=== PATIENT | female | born 1980 | race Caucasian/White ===

== ENCOUNTER 2017-01-16 17:05 | Inpatient (IN) | payer BC ==
[2017-01-16] MEDS: ELECTROLYTE-148 SOLN 1,000 ML IV SCH (18:00)
[2017-01-16 18:06] VITALS: BMI 33.6
[2017-01-16 18:39] LABS: BASOPHIL 0.3 % (0-2.0); EOSINOPHIL 0.6 % (0-4.5); MCH 32.3 pg (25.7-33.7); MCHC 35.1 g/dl (32.0-36.0); MEAN PLT VOLUME 10.4 fl (7.5-11.1); NEUTROPHILS 66.9 % (42.8-82.8); PLATELET COUNT 202 K/MM3 (134-434); RDW 13.8 % (11.6-15.6)
--- NOTE | 2017-01-16 18:44 | HP ---
Past Medical History - Primary Care Physician PCP:: Lico Johnson - Admission Chief Complaint: 36yo P1 with at EGA 39w0d admitted with PROM at 4: 30pm History of Present Illness: coomplicated by: ASIF GDM A1 History Source: Patient, Medical Record Limitations to Obtaining History: No Limitations - Past Medical History VASCULAR NEUROLOGIST: No: Alzheimer's, CVA, Dementia, Migraine, Multiple Sclerosis, Peripheral Neuropathy, Parkinson's, Seizure, Syncope, TIA, Vertigo, Other Cardiovascular: No: AFIB, Aneurysm, Aortic Insufficiency, Aortic Stenosis, CAD, CHF, Deep Vein Thrombosis, HTN, Hyperlipdemia, ID, Mitral Insufficiency, Mitral Stenosis, Murmur, Pulmonary Hypertension, Other Pulmonary: No: Asthma, Bronchitis, Cancer, COPD, O2 Dependent, Pneumonia, Previously Intubated, Pulmonary Embolus, Pulmonary Fibrosis, Sleep Apnea, Other Gastrointestinal: No: Ascites, Cancer, Constipation, Crohn's Disease, Diverticulitis, Diverticulosis, Esophageal Varices, Gastritis, GERD, GI Bleed, Hemorrhoids, Hiatal Hernia, Inflamatory Bowel Disease, Irritable Bowel Disease, Pancreatitis, Peptic Ulcer Disease, Ulcerative Colitis, Other Hepatobiliary: No: Cirrhosis, Cholelithiasis, Cholecystitis, Choledocholithiasis , Hepatitis A, Hepatitis B, Hepatitis C, Other Reproductive: No: Ectopic , Endometriosis, Fibroids, PID, Polycystic Ovary Syndrome, Postmenopausal, Other ...: 2 ...Para: 1 ...Term: 1 ...LMP: 04/18/16 ... Weeks Gestation by Dates: 39 ...EDC by Dates: 01/23/17 ...EDC by Sono: 01/23/17 Heme/Onc: Yes: Anemia Infectious Disease: No: AIDS, C-Diff, Herpes Zoster, HIV, MRSA, STD's, Tuberculosis, VREF, Other Psych: No: Addictions, Anxiety, Bipolar, Depression, Panic, Psychosis, Schizophrenia, Other Musculoskeletal: No: Bursitis, Chronic low back pain, Hemiparesis, Hemiplegia, Osteoarthritis, Paraplegia, Other ENT: No: Allergic Rhinitis, Sinusitis, Other Endocrine: No: Zackary's Disease, Jimena's Disease, Diabetes Insipidus, Diabetes Mellitus, Hyperparathyroidism, Hyperthyroidism, Hypothyroidism, Osteopenia, SIADH, Other Dermatology: No: Basal Cell, Cellulitis, Eczema, Melanoma, Psoriasis, Squamous Cell, Other - Past Surgical History Past Surgical History: Yes: None Hx Myomectomy: No Hx Transabdominal Cerclage: No - Smoking History Smoking history: Never smoked Have you smoked in the past 12 months: No - Alcohol/Substance Use Hx Alcohol Use: No History of Substance Use: reports: None - Social History Usual Living Arrangement: Yes: With Spouse, With Child ADL: Independent 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 History of Recent Travel: No Home Medications - Allergies Allergies/Adverse Reactions: Allergies Allergy/AdvReac Type Severity Reaction Status Date / Time No Known Allergies Allergy Verified 02/02/14 07:55 - Home Medications Home Medications: Ambulatory Orders -1 Capsule 1 tab PO DAILY 01/08/14 Family Disease History - Family Disease History Family History: Denies Review of Systems - Review of Systems Constitutional: reports: No Symptoms Eyes: reports: No Symptoms HENT: reports: No Symptoms Neck: reports: No Symptoms Cardiovascular: reports: No Symptoms Respiratory: reports: No Symptoms Gastrointestinal: reports: No Symptoms Genitourinary: reports: No Symptoms Breasts: reports: No Symptoms Reported Musculoskeletal: reports: No Symptoms Integumentary: reports: No Symptoms Neurological: reports: No Symptoms Endocrine: reports: No Symptoms Hematology/Lymphatic: reports: No Symptoms Psychiatric: reports: No Symptoms Pain Intensity: 1 Physical Exam - Maternity Vital Signs: Vital Signs Temperature 98.1 F 01/16/17 17:57 Pulse Rate 95 H 01/16/17 17:57 Respiratory Rate 20 01/16/17 17:57 Blood Pressure 110/70 01/16/17 17:57 O2 Sat by Pulse Oximetry (%) Constitutional: Yes: Well Nourished, No Distress, Calm Eyes: Yes: WNL, Conjunctiva Clear, EOM Intact HENT: Yes: WNL, Atraumatic, Normocephalic Neck: Yes: WNL, Supple, Trachea Midline Cardiovascular: Yes: WNL, Regular Rate and Rhythm Lungs: Clear to auscultation, Normal air movement Breast(s): Yes: WNL - Abdominal Exam/OB Fundal Height: 39 Number of Fetuses: Single Presentation: Vertex (US confirmed at bedside) Contractions: Yes Regularity: Irregular Intensity: Unaware Monitor Mode: External Heart Rate (range): 130 Heart Rate Location: Midline Category: I Accelerations: Uniform Decelerations: None - Vaginal Exam/OB Vaginal Bleediing: No Speculum Exam: No (grossly rupturred) Dilatation (cm): 3 Effacement (%): 50 Amniotic Membrane Status: Leaking Nitrazine Test: Positive Amniotic Fluid: Yes: Clear Presentation: Vertex/Position Station: -4 (Adequate gynecoid pelvimetry) - Physical Exam Musculoskeletal: Yes: WNL Extremities: Yes: WNL Edema: No Edema: LLE: Trace, RLE: Trace Integumentary: Yes: WNL Deep Tendon Reflex Grade: Normal +2 ...Motor Strength: WNL Psychiatric: Yes: WNL, Alert, Oriented Hemorrhage Risk Assessment - Risk Factors Medium Risk Factors: Yes: None High Risk Factors: Yes: None Risk Score: 1 Risk Level: Medium Risk Imaging - Results Ultrasound: Report Reviewed Assessment/Plan 36yo P1 with at EGA 39w0d admitted with PROM at 4:30pm. The fetus with Category i tracing and requires no intervention. Plan to induce contractions with pitocin. We had land discussion re: risks, benefits, and alternatives of labor induction. I explained the options of expectant management awaiting spontaneous labor, induction of labor, and elective section. The risks of uterine tachysystole, distress, uterine rupture, need for emergency C/S, hemorrhage, infection, scarring, etc. were discussed. We also discussed the risks of meconium aspiration, shoulder dystocia , and anesthesia options.
[2017-01-16 18:56] LABS: INR 0.96 (0.82-1.09); PROTHROMBIN TIME (PATIENT) 10.6 SEC (9.98-11.88)
[2017-01-16 18:58] LABS: ACTIVATED PTT 25.1 SECONDS (26.9-34.4)
[2017-01-16 19:04] LABS: ANION GAP 9 (8-16); CALCIUM 9.3 mg/dL (8.5-10.1); CO2 23 mmol/L (21-32); CREATININE 0.9 mg/dL (0.55-1.02); GLUCOSE,RANDOM 76 mg/dL (74-106)
[2017-01-16] MEDS: OXYTOCIN 15 UNITS/ LR 250 ML 250 ML IVPB SCH (20:00)
[2017-01-16] MEDS ORDERED: CITRIC ACID/SODIUM CITRATE 30 ML UNIT-DOSE CUP PO ONE (20:30)
[2017-01-17] MEDS ORDERED: FENTANYL/BUPIVACAINE/NS/PF - PCEA - 50 ML DISP.SYRIN EP SCH (00:45)
[2017-01-17] MEDS: ELECTROLYTE-148 SOLN 1,000 ML IV SCH ×3 (00:45→23:44)
--- NOTE | 2017-01-17 06:39 | PN ---
Delivery - Delivery Vaginal Delivery: Spontaneous Type of Anesthesia: Epidural Episiotomy/Laceration: Midline, 1st degree (repaired with 2-0 Chromic) EBL (cc): 300 Delivery, Single - Stages of Labor Date 1st Stage Initiatied: 01/16/17 Date 2nd Stage Initiated: 01/17/17 Date of Delivery: 01/17/17 Time of Delivery: 06:15 Date Placenta Delivered: 01/17/17 Time Placenta Delivered: 06:20 Placenta: Yes: Spontaneous - Condition of Infant Radiology Administrator/Transmission And Protection Engineer Present: Yes Infant Gender: Female Position: OA - 1 Minute Total Score: 9 5 Minutes Total Score: 9 - Feeding Plan Initial Plan: Exclusive throughout hospitalization Benefits of Exclusively reinforced: Yes Remarks - Remarks Remarks: uncomplicated head and shoulder delivery
[2017-01-17] MEDS ORDERED: BENZOCAINE 28 GM HEMORRHOIDAL OINTMENT TP PRN (06:40)
[2017-01-17] MEDS ORDERED: BISACODYL 10 MG SUPP.RECT RC PRN (06:40)
[2017-01-17] MEDS ORDERED: WITCH HAZEL 50% (TUCKS) 40 PAD/JAR PAD TP PRN (06:40)
[2017-01-17] MEDS ORDERED: BENZOCAINE 20% 57 GM BOTTLE TP PRN (06:40)
[2017-01-17] MEDS ORDERED: METHYLERGONOVINE MALEATE 0.2 MG/1 ML AMP IM PRN (06:40)
[2017-01-17] MEDS ORDERED: D5W-LR W/ 20 UNITS OXYTOCIN 1,000 ML IV SCH (06:45)
[2017-01-17] MEDS: ACETAMINOPHEN 325 MG TABLET (FP) PO PRN ×3 (10:34→22:07)
[2017-01-17] MEDS: IBUPROFEN 600 MG TABLET (FP) PO PRN ×3 (10:35→22:07)
[2017-01-17] MEDS: PRENATAL VITAMINS W/ FOLIC ACID TABLET (FP) PO SCH (10:35)
[2017-01-17] MEDS: FERROUS SO4 325 MG TABLET (FP) PO SCH ×2 (10:35→22:08)
[2017-01-17] MEDS: OXYTOCIN 15 UNITS/ LR 250 ML 250 ML IVPB SCH (23:44)
[2017-01-18] MEDS: ACETAMINOPHEN 325 MG TABLET (FP) PO PRN ×3 (04:20→19:21)
[2017-01-18] MEDS: IBUPROFEN 600 MG TABLET (FP) PO PRN ×3 (04:20→19:21)
[2017-01-18 07:48] LABS: BASOPHIL 0.4 % (0-2.0); MCH 31.5 pg (25.7-33.7); MCHC 33.9 g/dl (32.0-36.0); MEAN PLT VOLUME 10.1 fl (7.5-11.1); NEUTROPHILS 70.6 % (42.8-82.8); PLATELET COUNT 164 K/MM3 (134-434); RDW 13.8 % (11.6-15.6)
--- NOTE | 2017-01-18 08:30 | PN ---
Progress Note (short form) - Note Progress Note: ppd 1 doing well, no c/o voids ok, no excess vaginal bleeding uterus firm, non tender, lochia mild no calf tenderness plan ambulate, for d/c home in am
[2017-01-18] MEDS: PRENATAL VITAMINS W/ FOLIC ACID TABLET (FP) PO SCH (09:12)
[2017-01-18] MEDS: FERROUS SO4 325 MG TABLET (FP) PO SCH ×2 (09:12→21:58)
[2017-01-18] MEDS ORDERED: SENNOSIDES/DOCUSATE COMBO (SENNA PLUS) TABLET (UD) PO PRN ×2 (22:00)
[2017-01-19] MEDS: IBUPROFEN 600 MG TABLET (FP) PO PRN ×3 (01:43→10:31)
[2017-01-19] MEDS: ACETAMINOPHEN 325 MG TABLET (FP) PO PRN ×3 (01:44→10:30)
[2017-01-19] MEDS: PRENATAL VITAMINS W/ FOLIC ACID TABLET (FP) PO SCH (10:31)
[2017-01-19] MEDS: FERROUS SO4 325 MG TABLET (FP) PO SCH (10:32)
--- NOTE | 2017-01-19 11:05 | DS ---
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 Vital Signs: Vital Signs Temperature 97.9 F 01/18/17 22:00 Pulse Rate 78 01/18/17 22:00 Respiratory Rate 18 01/18/17 22:00 Blood Pressure 123/75 01/18/17 22:00 O2 Sat by Pulse Oximetry (%) 100 01/17/17 06:45 Constitutional: Yes: Well Nourished, No Distress, Calm Eyes: Yes: WNL, Conjunctiva Clear, EOM Intact HENT: Yes: WNL, Atraumatic, Normocephalic Neck: Yes: WNL, Supple, Trachea Midline Cardiovascular: Yes: WNL, Regular Rate and Rhythm Respiratory: Yes: WNL, Regular, CTA Bilaterally Gastrointestinal: Yes: WNL ...Rectal Exam: Yes: WNL Renal/: Yes: WNL ....Post : Yes: Uterus firm, Uterus non-tender, Slight lochia rubra Breast(s): Yes: WNL Musculoskeletal: Yes: WNL Extremities: Yes: WNL Edema: No Integumentary: Yes: WNL Neurological: Yes: WNL, Alert, Oriented ...Motor Strength: WNL Psychiatric: Yes: WNL, Alert, Oriented Labs: CBC, BMP 01/18/17 06:00 01/16/17 18:00 Delivery - Delivery Vaginal Delivery: Spontaneous Type of Anesthesia: Epidural Episiotomy/Laceration: Vaginal Extension/lac, 1st degree EBL (cc): 300 Delivery, Single - Stages of Labor Date 1st Stage Initiatied: 01/17/17 Time 1st Stage Initiated: 00:00 Date 2nd Stage Initiated: 01/17/17 Time 2nd Stage Initiated: 05:40 Date of Delivery: 01/17/17 Time of Delivery: 06:15 Time Placenta Delivered: 06:20 Placenta: Yes: Spontaneous - Condition of Infant Cook Specialty/Utility Porter Present: No Infant Gender: Female Weight: 7 lb 2 oz Position: OA Total Hours ROM (Hrs/Mins): 13HRS/50MINS - 1 Minute Total Score: 9 5 Minutes Total Score: 9 - Feeding Plan Initial Plan: Exclusive throughout hospitalization Benefits of Exclusively reinforced: Yes Discharge Summary Reason For Visit: SROM-LABOR Procedures: Principal: Condition: Good - Instructions Referrals: Lico Johnson MD [Staff Physician] - Disposition: HOME - Home Medications Comprehensive Discharge Medication List: Ambulatory Orders -1 Capsule 1 tab PO DAILY 01/08/14 Ibuprofen [Motrin -] 600 mg PO QID #28 tablet 01/17/17
[2017-01-19 13:53] VITALS: BP 100/64; PULSE 72; TEMP 98.7
== END 2017-01-19 13:00 | disposition home or self-care (01) | DRG 775 ==
LOC: JLDR 17:05 → J3W 01-17 08:40
PROVIDERS: ADMIT Obstetrics & Gynecology; ATTEND Obstetrics & Gynecology
PROC: 10E0XZZ Delivery of Products of Conception, External Approach (ICD-10-PCS; principal; 2017-01-17)
PROC: 0HQ9XZZ Repair Perineum Skin, External Approach (ICD-10-PCS; 2017-01-17)
DX: O70.0 First degree perineal laceration during delivery (principal); Z3A.39 39 weeks gestation of pregnancy; Z37.0 Single live birth
CPT/HCPCS: 36415; 59409; 80048; 85025; 85610; 85730; 86593; 86850; 86900; 86901

== ENCOUNTER 2017-01-23 07:53 | Inpatient (IN) | payer BC ==
[2017-01-23 07:59] VITALS: BMI 32.9
--- NOTE | 2017-01-23 08:30 | PDOC ---
History of Present Illness - General Chief Complaint: SIRS, Suspected/Possible Stated Complaint: PAIN Time Seen by Provider: 01/23/17 08:29 History Source: Patient Exam Limitations: No Limitations - History of Present Illness Initial Comments: CHIEF COMPLAINT: 36 y/o female, 6 days post via NVD c/o fever for the past 3 days and overall body pain. HISTORY OF PRESENT ILLNESS: The patient states this morning she developed SOB and her fever was 101.4. She took tylenol around 5:30am. She also admits to abdominal pain. She denies HALEY, neck pain, cough, hemoptysis, CP, n/v/d, redness /firmness to breasts. She has had bowel movements since delivery. Vital signs on arrival are within normal limits. REVIEW OF SYSTEMS: GENERAL/CONSTITUTIONAL: +fever and chills. +body pain. + weakness. No weight change. HEAD, EYES, EARS, NOSE AND THROAT: No change in vision. No ear pain or discharge. No sore throat. CARDIOVASCULAR: +SOB. No chest pain. RESPIRATORY: No cough, wheezing, or hemoptysis. GASTROINTESTINAL: +abdominal pain. No nausea, vomiting, diarrhea. GENITOURINARY: No dysuria, frequency, or change in urination. MUSCULOSKELETAL: No joint or muscle swelling or pain. No neck or back pain. SKIN: No rash or easy bruising. NEUROLOGIC: No headache, vertigo, loss of consciousness, or loss of sensation. PHYSICAL EXAM: GENERAL: The patient is awake, alert, and fully oriented, in obvious discomfort. Patient has 3 blankets on, is pale and lips very dry and cracked. HEAD: Normal with no signs of trauma. ENT: Pupils equal, round and reactive to light, extraocular movements intact, sclera anicteric, conjunctiva clear. Neck supple. Mucous membranes moderately dry. LUNGS: Clear to auscultation bilaterally. Normal excursion. No respiratory distress or use of accessory muscles. CV: RRR, S1/S2, no MRG. Cap refill < 2 sec. ABDOMEN: Firm, distended, very tender to palpation diffusely with guarding. VAGINAL: Digital exam reveals exquisite fundal tenderness. No adnexal tenderness b/l. EXTREMITIES: Normal range of motion, no edema. NEUROLOGICAL: Normal speech, normal gait. CN II-XII grossly intact. PSYCH: Normal mood, normal affect. SKIN: Warm, dry, normal turgor, no rashes or lesions noted. Past History - Past Medical History Allergies/Adverse Reactions: Allergies Allergy/AdvReac Type Severity Reaction Status Date / Time No Known Allergies Allergy Verified 01/23/17 07:59 Home Medications: Ambulatory Orders NK [No Known Home Medication] 01/23/17 Anemia: Yes (WITH ) Asthma: No Cancer: No Cardiac Disorders: No Diabetes: Yes (WITH ) HTN: No Seizures: No Thyroid Disease: No - Psycho/Social/Smoking Cessation Hx Suicidal Ideation: No Smoking History: Never smoked Have you smoked in the past 12 months: No Hx Alcohol Use: No Drug/Substance Use Hx: No Hx Substance Use Treatment: No *Physical Exam - Vital Signs Last Vital Signs Temp Pulse Resp BP Pulse Ox 98.9 F 86 20 136/79 98 01/23/17 07:54 01/23/17 07:54 01/23/17 07:54 01/23/17 07:54 01/23/17 07:54 Heart Score/ECG Review - ECG Intrepretation Comment:: Twelve-lead EKG was performed and reviewed by Dr. Miller. There is normal sinus rhythm with a normal rate. The axis is normal. The intervals are normal. There are no ST or T wave abnormalities. Impression: Normal twelve-lead EKG ED Treatment Course - LABORATORY CBC & Chemistry Diagram: 01/23/17 09:23 01/23/17 09:23 Medical Decision Making - Medical Decision Making A/P: 36 y/o female with fever x 3 days s/p NVD 6 days ago. Pt is also complaining of SOB. Concerned for retained products, PE, sepsis. Plan is as follows: 1. Sepsis protocol 2. Chest CTA 3. Transvaginal Ultrasound 4. IV morphine After morphine, the abdominal pain has localized to her RUQ. Liver enzymes are all mildly elevated. Suspect cholecystitis. Ordered official ultrasound. Chest CTA IMPRESSION: No large central emboli seen. Small pleural effusions, right greater than left. Bibasilar atelectasis/infiltrates. Nonspecific hepatosplenomegaly. Transvaginal Ultrasound IMPRESSION: No evidence of retained products of conception. Gallbladder Ultrasound IMPRESSION: Trace ascites and hepatomegaly. No sonographic evidence of acute cholecystitis. Bedside abdominal ultrasound reveals some free fluid in Corley's pouch and in space between spleen and left kidney. Will send for abd/pelvis CT. CT abd/pelvis IMPRESSION: Mild subhepatic fluid. Hepatosplenomegaly. Significantly enlarged uterus with compression of the upper bladder by the uterus. Spoke extensively with Dr. 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 She states her labor was uneventful and her water was only broken for about 14 hours prior to delivery. Given the patient's fundal tenderness will admit to the OB (she accepts admission) for endometritis, pneumonia and pyelonephritis. The patient was given IV vanc and zosyn in the ER. Dr. Lindsay would like the patient to have gent, clinda and cefoxitime. Will also add pulmonary consult. The patient and her were made aware of the plan for admission. She states her pain is coming back. Ordered another dose of IV morphine. Dr. Mckeon has consulted with the patient and feels she should be admitted to ICU under hospitalist. He would also like ID and general surgery consults. Spoke with Hospitalist, Dr. Alvarenga, who accepts admission. *DC/Admit/Observation/Transfer Diagnosis at time of Disposition: Pyelonephritis complicating , antepartum, Pneumonia affecting , antepartum, Endometritis following delivery UTI (urinary tract infection) Qualifiers: Qualified Code(s): N10 - Acute pyelonephritis - Discharge Dispostion Condition at time of disposition: Fair Admit: Yes
[2017-01-23] MEDS ORDERED: SODIUM CHLORIDE 1,000 ML IV STA (08:38)
[2017-01-23] MEDS ORDERED: morphine CARPU-JECT 4 MG/1 ML DISP.SYRIN IVPUSH ONE ×2 (08:43→13:52)
[2017-01-23] MEDS ORDERED: morphine CARPU-JECT 2 MG/1 ML DISP.SYRIN ONE ×2 (09:08→13:54)
[2017-01-23 09:25] LABS: BASOPHIL 0.4 % (0-2.0); EOSINOPHIL 0.1 % (0-4.5); MCH 31.4 pg (25.7-33.7); MCHC 33.4 g/dl (32.0-36.0); MEAN CELL VOLUME 93.9 fl (80-96); MEAN PLT VOLUME 8.2 fl (7.5-11.1); NEUTROPHILS 81.9 % (42.8-82.8); PLATELET COUNT 243 K/MM3 (134-434); WHITE BLOOD COUNT 7.7 K/mm3 (4.0-10.0)
[2017-01-23 09:39] LABS: INR 1.02 (0.82-1.09); PROTHROMBIN TIME (PATIENT) 11.2 SEC (9.98-11.88)
[2017-01-23 09:42] LABS: ACTIVATED PTT 28.2 SECONDS (26.9-34.4)
[2017-01-23 09:48] LABS: ALBUMIN 2.4 g/dl (3.4-5.0); ANION GAP 8 (8-16); BILIRUBIN,TOTAL 0.3 mg/dL (0.2-1.0); CALCIUM 8.2 mg/dL (8.5-10.1); CO2 24 mmol/L (21-32); CREATININE 0.8 mg/dL (0.55-1.02); GLUCOSE,RANDOM 80 mg/dL (74-106); SGOT/AST 49 U/L (15-37); SGPT/ALT 80 U/L (12-78); TOT PROT 6.1 g/dl (6.4-8.2)
[2017-01-23 09:51] LABS: ALK PHOS 125 U/L (45-117); CPK 43 IU/L (26-192); TROPONIN I 0.04 ng/ml (0.00-0.05)
[2017-01-23 11:01] LABS: URINE APPEARANCE TURBID; URINE BILIRUBIN NEGATIVE (NEGATIVE); URINE BLOOD 3+ (NEGATIVE); URINE COLOR DKYELLOW; URINE GLUCOSE (UA) NEGATIVE (NEGATIVE); URINE KETONE NEGATIVE (NEGATIVE); URINE NITRITE NEGATIVE (NEGATIVE); URINE UROBILINOGEN NEGATIVE mg/dL (0.2-1.0)
[2017-01-23 11:02] LABS: URINE LEUK ESTERASE 3+ (NEGATIVE); URINE PROTEIN 2+ (NEGATIVE)
[2017-01-23 11:03] LABS: URINE MUCUS RARE; URINE RBC 16 /hpf (0-3); URINE WBC 1396 /hpf (3-5)
[2017-01-23] MEDS ORDERED: PIPERACILLIN/TAZOB 3.375 GM/50 ML PRE-DOCKED IVPB ONE (12:23)
[2017-01-23] MEDS ORDERED: VANCOMYCIN 1,000 MG in DEXTROSE 5%-WATER - 250 ML IVPB ONE (12:24)
[2017-01-23] MEDS ORDERED: PIPERACILLIN/TAZOB 3.375 GM 50 ML IVPB ONE (12:31)
[2017-01-23] MEDS ORDERED: VANCOMYCIN 1 GRAM (PRE-DOCKED) 250 ML IVPB ONE (12:31)
--- NOTE | 2017-01-23 14:28 | PDOC ---
*Physical Exam - Vital Signs Last Vital Signs Temp Pulse Resp BP Pulse Ox 98.9 F 86 20 136/79 98 01/23/17 07:54 01/23/17 07:54 01/23/17 07:54 01/23/17 07:54 01/23/17 07:54 - Physical Exam General Appearance: Yes: Nourished. No: Apparent Distress Neck: positive: Trachea midline Respiratory/Chest: positive: Lungs Clear, Normal Breath Sounds Cardiovascular: positive: Regular Rhythm, Regular Rate, S1, S2. negative: Edema Gastrointestinal/Abdominal: positive: Normal Bowel Sounds, Tender, Other (RUQ TTp, diffusely ttp. no) Musculoskeletal: negative: CVA Tenderness Integumentary: positive: Normal Color, Dry, Warm Neurologic: positive: Fully Oriented, Alert, Normal Mood/Affect ED Treatment Course - LABORATORY CBC & Chemistry Diagram: 01/23/17 09:23 01/23/17 09:23 - ADDITIONAL ORDERS Additional order review: Laboratory Results 01/23/17 01/23/17 01/23/17 12:50 09:23 09:23 INR PTT (Actin FS) Sodium Potassium Chloride Carbon Dioxide Anion Gap BUN Creatinine Creat Clearance w eGFR Random Glucose Lactic Acid 1.0 Calcium Total Bilirubin AST ALT Alkaline Phosphatase Creatine Kinase Troponin I Total Protein Albumin Lipase 99 Urine Color Urine Appearance Urine pH Ur Specific [place] Urine Protein Urine Glucose (UA) Urine Ketones Urine Blood Urine Nitrite Urine Bilirubin Urine Urobilinogen Ur Leukocyte Esterase Urine RBC Urine WBC Ur Epithelial Cells Urine Mucus Blood Type O POSITIVE Antibody Screen Negative 01/23/17 01/23/17 01/23/17 09:23 09:23 09:23 INR 1.02 PTT (Actin FS) 28.2 Sodium 142 Potassium 4.4 Chloride 110 H Carbon Dioxide 24 Anion Gap 8 BUN 14 D Creatinine 0.8 Creat Clearance w eGFR > 60 Random Glucose 80 Lactic Acid Calcium 8.2 L Total Bilirubin 0.3 AST 49 H ALT 80 H Alkaline Phosphatase 125 H Creatine Kinase 43 Troponin I 0.04 Total Protein 6.1 L Albumin 2.4 L Lipase Urine Color Dkyellow Urine Appearance Turbid Urine pH 5.0 Ur Specific [place] 1.015 Urine Protein 2+ H Urine Glucose (UA) Negative Urine Ketones Negative Urine Blood 3+ H Urine Nitrite Negative Urine Bilirubin Negative Urine Urobilinogen Negative Ur Leukocyte Esterase 3+ H Urine RBC 16 Urine WBC 1396 Ur Epithelial Cells Moderate Urine Mucus Rare Blood Type Antibody Screen 01/23/17 09:23 RBC 3.85 MCV 93.9 MCHC 33.4 RDW 14.0 MPV 8.2 D Neutrophils % 81.9 Lymphocytes % 13.5 D Monocytes % 4.1 Eosinophils % 0.1 D Basophils % 0.4 - Medications Given in the ED: ED Medications Discontinued Medications Generic Name Dose Route Start Last Admin Trade Name Magui PRN Reason Stop Dose Admin Sodium Chloride 1,000 mls @ 1,000 mls/hr 01/23/17 08:38 01/23/17 09:15 Normal Saline - IV 01/23/17 09:37 1,000 mls/hr ASDIR STA Administration Vancomycin HCl 1,000 mg/ 250 mls @ 250 mls/hr 01/23/17 12:24 01/23/17 12:32 Dextrose IVPB 01/23/17 13:23 250 mls/hr ONCE ONE Administration Protocol Morphine Sulfate 4 mg 01/23/17 08:43 01/23/17 09:15 Morphine Injection - IVPUSH 01/23/17 08:44 4 mg ONCE ONE Administration Morphine Sulfate 4 mg 01/23/17 13:52 01/23/17 14:00 Morphine Injection - IVPUSH 01/23/17 13:53 4 mg ONCE ONE Administration Piperacillin Sod/Tazobactam Sod 3.375 gm 01/23/17 12:23 01/23/17 12:32 Zosyn 3.375gm Ivpb (Pre-Docked) IVPB 01/23/17 12:24 3.375 gm ONCE ONE Administration Protocol Medical Decision Making - Medical Decision Making 01/23/17 14:19 36 yo F s/p vaginal delivery 1 week ago, here today with c/o fever chills abd pain and sob. no chest pain. no urinary complaints. pt is breast feeding . has breast engorgement. no redness. no n/v on exam pt awake l diffusely tendern abd, ruq ttp. differential: pe, sana cholelithiasis endometritis retained products. ut pyelo plan ct us ruq, . pt seen and examined in conjunction with ZACHARY Irizarry agree with plan bedside us ruq indication elevated liver ezymes fever RUQ ultrasound performed scanned in two planes no stones, no wall thickening or wall edema. negative sonographic laughlin's. small free fluid noted in morrisons pouch. cbd normal wall measured <4mm impression: normal gallbladder, free intraperitoneal fluid. focused ED TTE performed indication : sob. finding: heart scanned in two planes parasternal long and short. no pericardial effusion noted. good contractility. no rv enlargement or dilation. lungs scanned bilaterally. bilateral small plueral effusions. left base lungs air bronchograms noted impression: normal cardiac ultrasound, small pleural lung effusions, air bronchograms left base c/w atelectasis or pneumonia. cirilli *DC/Admit/Observation/Transfer Diagnosis at time of Disposition: Pyelonephritis complicating , antepartum, Pneumonia affecting , antepartum, Endometritis following delivery UTI (urinary tract infection) Qualifiers: Urinary tract infection type: acute pyelonephritis Qualified Code(s): N10 - Acute pyelonephritis
[2017-01-23] MEDS ORDERED: GENTAMICIN SO4 *PEDIATRIC* 20 MG/2 ML VIAL IVPB SCH (14:30)
[2017-01-23] MEDS ORDERED: ACETAMINOPHEN 1000 MG/100 ML VIAL (NON FORMULARY) IVPB ONE ×2 (15:13→23:13)
[2017-01-23] MEDS ORDERED: ACETAMINOPHEN INJECTION 100 ML IVPB ONE (15:13)
--- NOTE | 2017-01-23 15:41 | CON.PULM ---
Consult Consult Specialty:: PULMONARY Referred by:: PMD - History of Present Illness Chief Complaint: FEVER/ABN CT CHEST History of Present Illness: 36 FEMALE BORN IN [place] PRESENTS 4 DAYS POST NVD WITH WEAKNESS/FEVER/CHILLS/ DIFFUSE PROGRESSIVE ABD PAIN. DENIES N/V HAD A BM, DENIES SX OF UTI. SPOKE WITH OB THE DELIVERY WAS UNEVENTFUL. PRESENTS TO ER IN TOXIC APPEARING STATE, HAS RECEIVED MS/IV TYLENOL/ IV FLUIDS AND HAS BEEN PANCULTURED. SHE WILL BE ADMITTED TO THE ICU. 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's Cardio/Vascular: No: AFIB Pulmonary: No: Asthma Gastrointestinal: No: Cancer, Crohn's Disease, Gastritis, GERD, GI Bleed, Inflamatory Bowel Disease Hepatobiliary: No: Cirrhosis Renal/: No: Renal Failure Reproductive: Yes: Other (POST 6 DAYS) ...LMP: 04/25/13 ...: No Heme/Onc: Yes: Anemia - Past Surgical History Past Surgical History: Yes: None - Alcohol/Substance Use Hx Alcohol Use: No History of Substance Use: reports: None - Smoking History Smoking history: Never smoked Have you smoked in the past 12 months: No - Social History Usual Living Arrangement: With Spouse ADL: Independent 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 Place of : Other ([employer]) History of Recent Travel: No Home Medications - Allergies Allergies/Adverse Reactions: Allergies Allergy/AdvReac Type Severity Reaction Status Date / Time No Known Allergies Allergy Verified 01/23/17 07:59 - Home Medications Home Medications: Ambulatory Orders NK [No Known Home Medication] 01/23/17 Family Disease History - Family Disease History Family History: Unremarkable Review of Systems - Review of Systems Constitutional: reports: Chills, Diaphoresis, Fever, Lethargy, Loss of Appetite , Night Sweats, Weakness Eyes: denies: Blind Spots HENT: denies: Difficult Swallowing Neck: denies: Decreased ROM Cardiovascular: denies: Chest Pain Respiratory: denies: Cough, SOB Gastrointestinal: reports: Abdominal Pain. denies: Vomiting, Vomiting Blood Genitourinary: denies: Burning, Discharge Breasts: reports: No Symptoms Reported Musculoskeletal: reports: No Symptoms Integumentary: reports: No Symptoms Neurological: reports: No Symptoms Endocrine: reports: No Symptoms Hematology/Lymphatic: reports: No Symptoms Physical Exam Vital Sings: Vital Signs Temperature 100 F H 01/23/17 15:04 Pulse Rate 84 01/23/17 15:04 Respiratory Rate 18 01/23/17 15:04 Blood Pressure 132/78 01/23/17 15:04 O2 Sat by Pulse Oximetry (%) 98 01/23/17 15:04 Constitutional: Yes: Anxious, Ashen, Moderate Distress Eyes: Yes: EOM Intact HENT: Yes: Normocephalic Neck: Yes: Trachea Midline Cardiovascular: Yes: Regular Rate and Rhythm, S1, S2 Respiratory: Yes: CTA Bilaterally, Diminished (AT BASES) Gastrointestinal: Yes: Hypoactive Bowel Sounds, Tenderness (DIFFUSE) Renal/: Yes: WNL Musculoskeletal: Yes: WNL Extremities: Yes: WNL Edema: No Neurological: Yes: Alert Psychiatric: Yes: Alert Labs: ALL REVIEWED Imaging - Results Chest X-ray: Report Reviewed, Image Reviewed X-ray: Report Reviewed Cat Scan: Report Reviewed, Image Reviewed Ultrasound: Report Reviewed Problem List - Problems (1) Endometritis following delivery Code(s): O86.12 - ENDOMETRITIS FOLLOWING DELIVERY (2) Pyelonephritis complicating , antepartum Code(s): O23.00 - INFECTIONS OF KIDNEY IN , UNSPECIFIED TRIMESTER (3) UTI (urinary tract infection) Code(s): N39.0 - URINARY TRACT INFECTION, SITE NOT SPECIFIED Qualifiers: Urinary tract infection type: acute pyelonephritis Qualified Code(s): N10 - Acute pyelonephritis Assessment/Plan DIFFUSE ABDOMINAL PAIN/FEVER ETIOLOGY TO BE DETERMINED DOUBT SYMPTOMS ARE PULMONARY IN ORIGIN NOT UNUSUAL TO HAVE BIBASILAR ATELECTASIS POST ANTIBIOTICS GIVEN WOULD COVER PULMONARY PATHOGENS HAVE SPOKEN TO RADIOLOGYREGARDING STUDIES PERFORMED THUS FAR WILL ADMIT TO ICU UNDER HOSPITALIST SERVICE OB/GENERAL SURG CONSULTS CALLED WILL ALSO SUGGEST ID EVAL/AWAIT LACTIC ACID/CRP R RILEY MCLEOD
[2017-01-23] MEDS ORDERED: DEXTROSE 5%-0.45% SALINE 1,000 ML IV SCH (16:00)
[2017-01-23] MEDS ORDERED: morphine CARPU-JECT 2 MG/1 ML DISP.SYRIN IVPUSH PRN (17:01)
--- NOTE | 2017-01-23 17:19 | HP ---
CHIEF COMPLAINT: fever, chills, SOB, abdominal pain x 3 days PCP: HISTORY OF PRESENT ILLNESS: 36 y/o F with PMH gestational diabetes, iron deficiency anemia, who presented to ED with fever, chills, SOB, abdominal pain x 3 days. Pt had a normal vaginal delivery on (01/17), with episiotomy. As per pt, on Saturday (01/19), she had tactile fever and chills. Then on Saturday and Saturday, she developed SOB at rest. During this time, pt had abdominal pain that started in her LLQ initially, that later localized in her RLQ. The pain is severe, constant and alternates between a sharp and dull pain. She has also had generalized weakness in her upper and lower extremities since the , and has had vaginal bleeding since yesterday (changing 12-14 pads). Pt endorses dysuria, but isn't sure if it is from the episiotomy sutures. Denies headache, N/V/D, changes in vision, chest pain, or lower extremity pain. ER course was notable for: (1) Chest CTA: small pleural effusions R>L, bibasilar atelectasis/infiltrates (2) CT abdomen/pelvis: hepatosplenomegaly, sig. enlaregd uterus with compression on upper bladder (3) Recent Travel: none PAST MEDICAL HISTORY: gestational diabetes (both pregnancies), iron deficiency anemia (after recent ) PAST SURGICAL HISTORY: none Social History: Smoking: denies Alcohol: wine socially Drugs: denies Family History: Mother- HTN, father- stroke, heart attack, b/l hip replacement, knee replacement, blood clotting disorder (does not know name) Allergies No Known Allergies Allergy (Verified 01/23/17 07:59) HOME MEDICATIONS: Home Medications Medication Instructions Recorded NK [No Known Home Medication] 01/23/17 REVIEW OF SYSTEMS CONSTITUTIONAL: +chills, +generalized weakness Absent: fever, chills, diaphoresis, generalized weakness, malaise, loss of appetite, weight change HEENT: Absent: rhinorrhea, nasal congestion, throat pain, throat swelling, difficulty swallowing, mouth swelling, ear pain, eye pain, visual changes CARDIOVASCULAR: Absent: chest pain, syncope, palpitations, irregular heart rate, lightheadedness , peripheral edema RESPIRATORY: +SOB Absent: cough, shortness of breath, dyspnea with exertion, orthopnea, wheezing, stridor, hemoptysis GASTROINTESTINAL: +abdominal pain, abdominal distension Absent: abdominal pain, abdominal distension, nausea, vomiting, diarrhea, constipation, melena, hematochezia GENITOURINARY: +dysuria Absent: dysuria, frequency, urgency, hesitancy, hematuria, flank pain, genital pain MUSCULOSKELETAL: Absent: myalgia, arthralgia, joint swelling, back pain, neck pain SKIN: Absent: rash, itching, pallor HEMATOLOGIC/IMMUNOLOGIC: +vaginal bleeding Absent: easy bleeding, easy bruising, lymphadenopathy, frequent infections ENDOCRINE: Absent: unexplained weight gain, unexplained weight loss, heat intolerance, cold intolerance NEUROLOGIC: Absent: headache, focal weakness or paresthesias, dizziness, unsteady gait, seizure, mental status changes, bladder or bowel incontinence PSYCHIATRIC: Absent: anxiety, depression, suicidal or homicidal ideation, hallucinations. PHYSICAL EXAMINATION Vital Signs - 24 hr 01/23/17 01/23/17 15:04 15:58 Temperature 100 F H Pulse Rate [ 84 85 Apical] Respiratory 18 20 Rate Blood Pressure 132/78 124/73 [Arm] O2 Sat by Pulse 98 100 Oximetry (%) GENERAL: Awake, alert, and fully oriented, in moderate distress HEAD: Normal with no signs of trauma. EYES: Pupils equal, round and reactive to light, extraocular movements intact, sclera anicteric, conjunctiva clear. NECK: Normal range of motion, supple without lymphadenopathy, JVD, or masses. LUNGS: crackles appreciated b/l, no rhonchi or wheezes HEART: Regular rate and rhythm, normal S1 and S2 without murmur, rub or gallop. ABDOMEN: tender to palpation in RUQ, RLQ, voluntary guarding, - rebound tenderness MUSCULOSKELETAL: Normal range of motion at all joints. No bony deformities or tenderness. LOWER EXTREMITIES: 2+ posterior tibial pulses, warm, well-perfused. No calf tenderness. 1+ edema b/l NEUROLOGICAL: Cranial nerves II-XII intact. SKIN: diaphoretic ASSESSMENT/PLAN: 36 y/o F with PMH gestational diabetes, iron deficiency anemia, who presented to ED with fever, chills, SOB, abdominal pain x 3 days. Pt admitted to ICU for sepsis secondary to endometritis and pyelonephritis. #Sepsis secondary to endometritis and pyelonephritis -Admit to ICU for close monitoring -F/u urine cx, blood cx -Consulted ID: Dr. Bedoya -Consulted OB: Dr. Lindsay -Consulted Pulm: Dr. Mckeon -Pt received 1 dose vanc/zosyn in ED -Currently on Clinda 600 mg q8h IV, Gentamicin 400mg IVPB qdaily (Today is Day1) -Pain control morphine 2mg q4h PRN -Abx as per ID #Elevated transaminases -Possibly d/t cholestasis of -F/u CMP -F/u will call primary care doctor, baseline levels # -Breast pump, but dump milk from first 24hrs d/t abx #Prophylaxis DVT: Lovenox 40sq qdaily (confirmed with pharmacy, safe w/) F/E/N -IV NS 100cc/hr -Monitor electrolytes -Regular diet Disposition Admit to ICU Visit type - Emergency Visit Emergency Visit: Yes ED Registration Date: 01/23/17 Care time: The patient presented to the Emergency Department on the above date and was hospitalized for further evaluation of their emergent condition. - New Patient This patient is new to me today: Yes Date on this admission: 01/23/17 - Critical Care Critical Care patient: Yes Total Critical Care Time (in minutes): 32 Critical Care Statement: The care of this patient involved high complexity decision making to prevent further life threatening deterioration of the patient 's condition and/or to evaluate & treat vital organ system(s) failure or risk of failure.
--- NOTE | 2017-01-23 17:20 | CONSULT ---
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 Cardio/Vascular: No: AFIB Pulmonary: No: Asthma Gastrointestinal: No: Cancer, Crohn's Disease, Gastritis, GERD, GI Bleed, Inflamatory Bowel Disease Hepatobiliary: No: Cirrhosis Renal/: No: Renal Failure ...LMP: 04/25/13 ...: No - Past Surgical History Past Surgical History: Yes: None - Alcohol/Substance Use Hx Alcohol Use: No History of Substance Use: reports: None - Smoking History Smoking history: Never smoked Have you smoked in the past 12 months: No - Social History Usual Living Arrangement: With Spouse ADL: Independent 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 denies: Diarrhea, Melena, Nausea, Vomiting Genitourinary: reports: No Symptoms Neurological: denies: Change in LOC Pain Intensity: 5 Physical Exam Vital Signs: Vital Signs Temperature 100 F H 01/23/17 15:04 Pulse Rate 85 01/23/17 15:58 Respiratory Rate 20 01/23/17 15:58 Blood Pressure 124/73 01/23/17 15:58 O2 Sat by Pulse Oximetry (%) 100 01/23/17 15:58 Constitutional: Yes: Calm Neck: Yes: Supple Cardiovascular: Yes: Regular Rate and Rhythm Respiratory: Yes: CTA Bilaterally Gastrointestinal: Yes: Distention, Tenderness (Tender in all quadrants, no rebound). No: Tenderness, Rebound Extremities: Yes: WNL Neurological: Yes: Alert, Oriented Labs: CBC, BMP 01/23/17 09:23 01/23/17 09:23 Imaging - Results Cat Scan: Report Reviewed, Image Reviewed Ultrasound: Report Reviewed, Image Reviewed Assessment/Plan 36 female with recent vaginal delivery with abdominal pain On CT and ultrasound: Enlarged uterus, no evidence of acute cholecystitis, no free air, trace ascites, hepatomegaly NPO Receiving And Processing Supervisor evaluation IV fluids May need NG tube if abdomen remains distended
--- NOTE | 2017-01-23 17:23 | HP ---
CHIEF COMPLAINT: general malaise, fever, abdominal pain HISTORY OF PRESENT ILLNESS: 36 yr old woman day#8 presented with fevers, abdominal pain, SOB, and generalized malaise for the past 3 days. Last night the abdominal pain was intractable. SOB would occur was intermittent, sometimes occurring at rest. She had been taking tylenol for the subjective fevers. notes b/l le swelling has been getting worse over the last few days. She had an uncomplicated delivery requiring episiotomy has been toileting without difficulty. vaginal bleeding typical of post- with lochia. ER course was notable for: (1)CTA, abd/pelvis CT, transvag u/s (2)bld cx, urine cx (3) Recent Travel:none, no sick contacts. PAST MEDICAL HISTORY: gestational DM anemia PAST SURGICAL HISTORY: denies Social History: Smoking:denies Alcohol:denies Drugs: denies Allergies No Known Allergies Allergy (Verified 01/23/17 07:59) HOME MEDICATIONS: Home Medications Medication Instructions Recorded NK [No Known Home Medication] 01/23/17 REVIEW OF SYSTEMS CONSTITUTIONAL: present: fever, generalized weakness, malaise, l Absent: chills, diaphoresis,oss of appetite, weight change HEENT: Absent: rhinorrhea, nasal congestion, throat pain, throat swelling, difficulty swallowing, mouth swelling, ear pain, eye pain, visual changes CARDIOVASCULAR: Present:peripheral edema Absent: chest pain, syncope, palpitations, irregular heart rate, lightheadedness , RESPIRATORY: Present:shortness of breath, Absent: cough, dyspnea with exertion, orthopnea, wheezing, stridor, hemoptysis GASTROINTESTINAL: Absent: abdominal pain, abdominal distension, nausea, vomiting, diarrhea, constipation, melena, hematochezia GENITOURINARY: Absent: dysuria, frequency, urgency, hesitancy, hematuria, genital pain MUSCULOSKELETAL: Absent: myalgia, arthralgia, joint swelling, back pain, neck pain SKIN: Absent: rash, itching, pallor HEMATOLOGIC/IMMUNOLOGIC: Absent: easy bleeding, easy bruising, lymphadenopathy, frequent infections ENDOCRINE: Absent: unexplained weight gain, unexplained weight loss, heat intolerance, cold intolerance NEUROLOGIC: Present: headache since this morning Absent:focal weakness or paresthesias, dizziness, unsteady gait, seizure, mental status changes, bladder or bowel incontinence PHYSICAL EXAMINATION Vital Signs - 24 hr 01/23/17 01/23/17 15:04 15:58 Temperature 100 F H Pulse Rate [ 84 85 Apical] Respiratory 18 20 Rate Blood Pressure 132/78 124/73 [Arm] O2 Sat by Pulse 98 100 Oximetry (%) GENERAL: Awake, alert, HEAD: Normal with no signs of trauma. EYES: Pupils equal, round and reactive to light, extraocular movements intact, sclera anicteric, conjunctiva clear. No lid lag. EARS, NOSE, THROAT: oropharynx clear without exudates. dry mucous membranes. NECK: Normal range of motion, supple without lymphadenopathy, JVD, or masses. LUNGS: Breath sounds equal, basilar crackles b/l R>L HEART: Regular rate and rhythm, normal S1 and S2 without murmur, rub or gallop. ASSESSMENT/PLAN: 36 yr old woman with post- #8 presents with generalized weakness, abdominal pain and shortness of breath admitted to ICU for further monitoring. - no PE seen on CTA, no retained products of conception on transvag u/s. no cholecytitis or pyelonephritis. - pt has free fluid in abdomen, surgical eval by dr. dennison. #Endometritis - iv abx, ID consult - IVF - pain control with morphine #Pna (bases on CTA) - iv abx - pulm consult - nasal cannula 2L continous - r/o legionella/strep pna, test urine ag #Pyuria - pt denies UTI s/s, renal u/s without hydro, however may still develop hydro - repeat u/a - urine cx pending, will be on abx #Transaminitis - likely due to cholestasis of , will need to compare to previous labs # - pump to be brought to bedside DVT: lovenox Diet: regular Visit type - Emergency Visit Emergency Visit: Yes ED Registration Date: 01/23/17 Care time: The patient presented to the Emergency Department on the above date and was hospitalized for further evaluation of their emergent condition. - New Patient This patient is new to me today: Yes Date on this admission: 01/23/17 - Critical Care Critical Care patient: No
--- NOTE | 2017-01-23 17:42 | CONSULT ---
Consult Consult Specialty:: infectious diseases Reason for Consultation:: fever,sepsis - History of Present Illness Chief Complaint: pain,fever History of Present Illness: 36 y/o F with PMH gestational diabetes, iron deficiency anemia, who presented to ED with fever, chills, SOB, abdominal pain x 3 days. Pt had a normal vaginal delivery on (01/17), with episiotomy. As per pt, on Saturday had fever and chills. patient never felt better and developed sob at rest she also mentions that she was having abd pain which was diffuse,according to the the pain is still bothering her currently she feels a little better and has been afebrile. 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: Alzheimer's Cardio/Vascular: No: AFIB Pulmonary: No: Asthma Gastrointestinal: No: Cancer, Crohn's Disease, Gastritis, GERD, GI Bleed, Inflamatory Bowel Disease Hepatobiliary: No: Cirrhosis Renal/: No: Renal Failure ...LMP: 04/25/13 ...: No - Past Surgical History Past Surgical History: Yes: None - Alcohol/Substance Use Hx Alcohol Use: No History of Substance Use: reports: None - Smoking History Smoking history: Never smoked Have you smoked in the past 12 months: No - Social History Usual Living Arrangement: With Spouse ADL: Independent 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 History of Recent Travel: No Home Medications - Allergies Allergies/Adverse Reactions: Allergies Allergy/AdvReac Type Severity Reaction Status Date / Time No Known Allergies Allergy Verified 01/23/17 07:59 - Home Medications Home Medications: Ambulatory Orders NK [No Known Home Medication] 01/23/17 Review of Systems - Review of Systems Constitutional: reports: Fever, Lethargy, Weakness Eyes: reports: No Symptoms HENT: reports: No Symptoms Neck: reports: No Symptoms Cardiovascular: reports: No Symptoms Respiratory: reports: No Symptoms Gastrointestinal: reports: Abdominal Pain, Other Genitourinary: reports: No Symptoms Musculoskeletal: reports: No Symptoms Integumentary: reports: No Symptoms Neurological: reports: No Symptoms Endocrine: reports: No Symptoms Hematology/Lymphatic: reports: No Symptoms Psychiatric: reports: No Symptoms Physical Exam Vital Signs: Vital Signs Temperature 100 F H 01/23/17 15:04 Pulse Rate 85 08/23/17 15:58 Respiratory Rate 20 01/23/17 15:58 Blood Pressure 124/73 01/23/17 15:58 O2 Sat by Pulse Oximetry (%) 100 01/23/17 15:58 Constitutional: Yes: Well Nourished, Calm, Mild Distress Eyes: Yes: Conjunctiva Clear HENT: Yes: Atraumatic Neck: Yes: Supple Cardiovascular: Yes: Regular Rate and Rhythm Respiratory: Yes: Regular, CTA Bilaterally Gastrointestinal: Yes: Soft, Tenderness Musculoskeletal: Yes: WNL Extremities: Yes: WNL Neurological: Yes: Alert, Oriented Psychiatric: Yes: Alert, Oriented Imaging - Results Chest X-ray: Report Reviewed, Image Reviewed Cat Scan: Report Reviewed, Image Reviewed Ultrasound: Report Reviewed, Image Reviewed Assessment/Plan Problem List - Problems (1) Endometritis following delivery Code(s): O86.12 - ENDOMETRITIS FOLLOWING DELIVERY (2) Pyelonephritis complicating , antepartum Code(s): O23.00 - INFECTIONS OF KIDNEY IN , UNSPECIFIED TRIMESTER (3) UTI (urinary tract infection) Code(s): N39.0 - URINARY TRACT INFECTION, SITE NOT SPECIFIED Qualifiers: Urinary tract infection type: acute pyelonephritis Qualified Code(s): N10 - Acute pyelonephritis fever patient has been given genta,clinda and cefuroxime plan continue close monitoring watch for any septic picture await for all cx reports to be back will switch abx tomorrow rest continue current mgmt and as per icu cc time 40 min
[2017-01-23] MEDS ORDERED: SODIUM CHLORIDE 1,000 ML IV SCH (18:15)
[2017-01-23] MEDS ORDERED: ENOXAPARIN NA (PORCINE) 40 MG/0.4 ML DISP.SYRIN SQ SCH (18:15)
--- NOTE | 2017-01-23 18:32 | PN ---
Teaching Attending Note Name of Resident: Britt Sacnhez ATTENDING PHYSICIAN STATEMENT I saw and evaluated the patient. I reviewed the resident's note and discussed the case with the resident. I agree with the resident's findings and plan as documented. SUBJECTIVE:36yo F c/o subjective fevers, chills, SOB, dysuria and increased hematuria for the past 3 days. increased discharge since yesterday. states she was diagnosed with gestational DM this but had uneventful . 6 days ago with rupture of membranes about 14H after initiation of delivery. as per delivery note had PROM. states she has been exclusively with some discomfort and minimal bloody discharge from the R breast. denies any pruritis, CP, N/V/C/D, unaware if pt had GBS during recent OBJECTIVE: Last Vital Signs Temp Pulse Resp BP Pulse Ox 100 F H 85 20 124/73 100 01/23/17 15:04 01/23/17 15:58 01/23/17 15:58 01/23/17 15:58 01/23/17 15:58 General diaphoretic CV S1 S2 RRR no murmur/rub/gallop Lungs decreased sounds at the R base no crackles or wheezing ABdomen diffusely tender +distention +CVA tenderness Extremities 1+ pitting edema ASSESSMENT AND PLAN: 36yo F with gestational DM presented to the ER with fever, chills and dysuria and abdominal pain 1. ACute endometritis and UTI with likely developing of pyelonephritis- accepted to MICU for close monitoring. u/s does not show retained products of conception. enlarged uterus consistent with recent delivery with some ascites which can be consistent with recent delivery. dilated kidney collecting system with CVA tenderness can likely be developing pyelonephritis. will monitor for now. surgery consulted but no intervention at this time. received clinda,gent and cefuroximine, IVF and pain control. OB and ID consulted. 2. SOB- likely due to pleural effusion. some questionable infiltrate in the base. CTA negative for PE. on abx. pulmonary consulted 3. Transaminitis- likely cholestasis of vs hypoperfusion from infection. do not have old labs to compare. CT show no gallbladder pathology. no old labs to compare. call PMD tomorrow for recent lab work. check hepatitis panel. 4. day 7- . breast pump to bedside. advised to pump and dump at this time. will evaluate if medications are compatible with 5. DVT ppx- Hep sq 6. MICU care and monitoring The care of this patient involved high complexity decision making to prevent further life threatening deterioration of the patient's condition and/or to evaluate & treat vital organ system(s) failure or risk of failure. 40 minutes critical care time
[2017-01-23 19:10] LABS: URINE APPEARANCE CLOUDY; URINE BILIRUBIN NEGATIVE (NEGATIVE); URINE BLOOD 3+ (NEGATIVE); URINE COLOR YELLOW; URINE GLUCOSE (UA) NEGATIVE (NEGATIVE); URINE KETONE NEGATIVE (NEGATIVE); URINE NITRITE NEGATIVE (NEGATIVE); URINE UROBILINOGEN NEGATIVE mg/dL (0.2-1.0)
[2017-01-23 19:14] LABS: URINE LEUK ESTERASE 3+ (NEGATIVE); URINE PROTEIN 2+ (NEGATIVE)
[2017-01-23 19:25] LABS: URINE RBC 318 /hpf (0-3); URINE WBC 800 /hpf (3-5)
--- NOTE | 2017-01-23 19:55 | CON.OBG ---
Consult Consult Specialty:: Gynecology Reason for Consultation:: 36 yo P2 PPD # 6 s/p presented today to ER, reporting T=101 at home, some SOB, low abdominal pain, heavy bloody discharge, feeling tiered and slugish since came home from the hospital on 01/19/17 - History of Present Illness Chief Complaint: T=101 at home, some SOB, low abdominal pain, heavy bloody discharge, feeling tiered and slugish since came home from the hospital on History of Present Illness: 36 yo P2 had care at [facility] with tx, course only complicated by: 1. Advanced maternal age and 2. Well controlled Gestational DM; She had Ruptured membranes at term and uneventful delivery 12-14hrs later on , was discharged on 01/19/17 as per routine. 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 Cardio/Vascular: No: AFIB Pulmonary: No: Asthma Gastrointestinal: No: Cancer, Crohn's Disease, Gastritis, GERD, GI Bleed, Inflamatory Bowel Disease Hepatobiliary: No: Cirrhosis Renal/: No: Renal Failure ...LMP: 04/25/13 ...: No ...: 2 ...Para: 2 - Past Surgical History Past Surgical History: Yes: None - Alcohol/Substance Use Hx Alcohol Use: No History of Substance Use: reports: None - Smoking History Smoking history: Never smoked Have you smoked in the past 12 months: No - Social History Usual Living Arrangement: With Spouse ADL: Independent 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 History of Recent Travel: No Home Medications - Allergies Allergies/Adverse Reactions: Allergies Allergy/AdvReac Type Severity Reaction Status Date / Time No Known Allergies Allergy Verified 01/23/17 07:59 - Home Medications Home Medications: Ambulatory Orders NK [No Known Home Medication] 01/23/17 Review of Systems - Review of Systems Constitutional: reports: Chills, Fever (She ate little today and kept it down) Neck: reports: No Symptoms Cardiovascular: reports: No Symptoms Respiratory: reports: No Symptoms, SOB (mild SOB, denies cough, or sputum production) Gastrointestinal: reports: No Symptoms Genitourinary: reports: Burning, Pain (lower abdomen), Vaginal Bleeding Breasts: reports: Other (bilateral engorgment) Musculoskeletal: reports: No Symptoms Integumentary: reports: No Symptoms Neurological: reports: No Symptoms Endocrine: reports: No Symptoms Hematology/Lymphatic: reports: No Symptoms Psychiatric: reports: No Symptoms 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 Vital Signs: Vital Signs Temperature 97.9 F 01/23/17 17:30 Pulse Rate 71 01/23/17 17:30 Respiratory Rate 22 01/23/17 17:30 Blood Pressure 121/80 01/23/17 17:30 O2 Sat by Pulse Oximetry (%) 100 01/23/17 15:58 Constitutional: Yes: Well Nourished, No Distress, Obese, Pallor HENT: Yes: Atraumatic, Normocephalic Neck: Yes: Supple Cardiovascular: Yes: Regular Rate and Rhythm Respiratory: Yes: Regular, Poor Air Entry (decreased BL breath sounds) Gastrointestinal: Yes: Normal Bowel Sounds, Soft, Abdomen, Obese External Genitalia: Yes: Normal (well healing 1st degree laceration) Internal Exam Deferred: Yes Vaginal Exam: Yes: Other (normal lochia) Cervix: Yes: Cerv Motion Tenderness Uterus: Yes: Enlarged (16weeks, consistent with recent VD), Tender (not a sever pain, tenderness) ....Post : Yes: Uterus tender Breast(s): Yes: Other (significant BL engorgment, no mastatis) Extremities: Yes: WNL Edema: No Integumentary: Yes: WNL Neurological: Yes: WNL ...Motor Strength: WNL Psychiatric: Yes: WNL Assessment/Plan 36 yo PPD # 6 with fever at home, Uterine tenderness, but normal WBC, no evidence of retained tissue in the uterus; Ruled out for PE, however finding of Hepatoslenomegaly and elevated LFTs; Finding of some Pulmonary congestion, but stable respiratory statys. Recommend: 1. Treat for presumed Endometritis, possible UTI - Antibiotic choice as per ID - Clidamycin/ Meropenem; follow all culture results, repeat CBC 2. Insentive spirometer 3. Request GI consult and consider RUQ US with dopplers to r/out Portal or Hepatic vein thrombosis, repeat LFTs 4. Breast pump to bed side to prevent Mastitis 5. Consider Low extremity doppler and if negative apply compression devices
--- NOTE | 2017-01-23 20:13 | PN ---
Progress Note (short form) - Note Progress Note: Patient is a 36 year old F with PMH gestational diabetes, iron deficiency anemia, who presented to ED with fever, chills, SOB, abdominal pain x 3 days admitted for UTI and possible endometritis, admitted in ICU for further evaluation. Patient is hemodynamically stable. Pain controlled with IV Morphine. She is using the Incentive spirometer and breast pump. Dr. Lindsay saw the patient today who suggested GI consult to r/o Hepatic/ Portal vein thrombosis, also recommends USG of abdomen with doppler. GI Consult requested (Dr. Moreno is precision instrument maker).
[2017-01-23] MEDS ORDERED: PT OWN MED DRAWER 7, Y5N ONE (20:54)
[2017-01-23] MEDS: CLINDAMYCIN 600MG PREMIX IVPB 50 ML IVPB SCH (21:07)
[2017-01-23] MEDS: MEROPENEM 1 GM in DEXTROSE 5%-WATER - 100 ML IVPB SCH (21:08)
[2017-01-23] MEDS: MUPIROCIN 2% TOPICAL OINTMENT FOR DECOLONIZATION NS SCH (21:09)
[2017-01-23] MEDS ORDERED: CHLORHEXIDINE GLUCONATE 4% CLEANSER FOR DECOLONIZATION TP SCH (22:00)
[2017-01-24] MEDS ORDERED: IBUPROFEN 800 MG/8 ML IJ IVPB ONE (02:19)
[2017-01-24] MEDS: CLINDAMYCIN 600MG PREMIX IVPB 50 ML IVPB SCH ×3 (02:33→18:45)
[2017-01-24] MEDS: MEROPENEM 1 GM in DEXTROSE 5%-WATER - 100 ML IVPB SCH ×3 (02:50→18:45)
[2017-01-24] MEDS ORDERED: GENTAMICIN IVPB SCH (06:00)
[2017-01-24] MEDS ORDERED: WATER IVPB SCH (06:00)
[2017-01-24] MEDS ORDERED: CEFUROXIME INJECTION 750 MG in DEXTROSE 5%-WATER - 50 ML IVPB ONE ×2 (06:00→08:00)
[2017-01-24] MEDS ORDERED: DEXTROSE 5% IVPB SCH (06:00)
[2017-01-24 06:26] LABS: BASOPHIL 0.2 % (0-2.0); EOSINOPHIL 0.1 % (0-4.5); MCH 31.8 pg (25.7-33.7); MCHC 33.9 g/dl (32.0-36.0); MEAN CELL VOLUME 93.8 fl (80-96); MEAN PLT VOLUME 8.5 fl (7.5-11.1); NEUTROPHILS 83.2 % (42.8-82.8); PLATELET COUNT 209 K/MM3 (134-434); RDW 13.7 % (11.6-15.6); WHITE BLOOD COUNT 9.4 K/mm3 (4.0-10.0)
[2017-01-24 06:49] LABS: ALBUMIN 1.9 g/dl (3.4-5.0); ANION GAP 6 (8-16); BILIRUBIN,TOTAL 0.3 mg/dL (0.2-1.0); CO2 23 mmol/L (21-32); CREATININE 0.8 mg/dL (0.55-1.02); GLUCOSE,RANDOM 113 mg/dL (74-106); SGOT/AST 47 U/L (15-37); SGPT/ALT 68 U/L (12-78)
[2017-01-24 06:50] LABS: ALK PHOS 107 U/L (45-117)
[2017-01-24] MEDS ORDERED: PT OWN MED DRAWER 7, Y5N ONE ×2 (08:58→09:38)
[2017-01-24] MEDS ORDERED: ACETAMINOPHEN 325 MG TABLET (FP) PO ONE (09:10)
[2017-01-24] MEDS ORDERED: ACETAMINOPHEN 1000 MG/100 ML VIAL (NON FORMULARY) IVPB ONE (09:20)
--- NOTE | 2017-01-24 09:34 | PN ---
Physical Exam: SUBJECTIVE: Patient seen and examined at bed side this morning. Has headache this morning with chills associated with nausea but no vomiting. Overnight had a temp of 100.6 F, no other acute overnight events. OBJECTIVE: Vital Signs Period Temp Pulse Resp BP Sys/Reyes Pulse Ox Last 24 Hr 97.5 F-100.8 F 54-99 18-29 110-132/65-80 98-100 GENERAL: Young female, is awake, alert, and fully oriented, in no acute distress. HEAD: Normal with no signs of trauma. EYES: EOM intact, no pallor or icterus. ENT: Ears normal, moist mucous membranes. NECK: Supple. LUNGS: Breath sounds equal, bibasilar crackles R>L, no wheezes, no crackles, no accessory muscle use. HEART: Regular rate and rhythm, S1, S2 without murmur. ABDOMEN: Soft, tender on the right lower quadrant, distended, normoactive bowel sounds, no guarding, no rebound, no hepatosplenomegaly couldn't be appreciated. Left sided CVA tenderness. EXTREMITIES: 2+ pulses, warm, well-perfused, no edema. Lower ext NEUROLOGICAL: No facial droop, Cranial nerves II through XII grossly intact. Normal speech, gait not observed. PSYCH: Normal mood, normal affect. SKIN: Warm, dry, normal turgor, no rashes or lesions noted Laboratory Results - last 24 hr 01/23/17 01/24/17 01/24/17 18:30 05:20 05:20 WBC 9.4 RBC 3.22 L Hgb 10.2 L D Hct 30.2 L D MCV 93.8 MCH 31.8 MCHC 33.9 RDW 13.7 Plt Count 209 MPV 8.5 Neutrophils % 83.2 H Lymphocytes % 10.6 D Monocytes % 5.9 Eosinophils % 0.1 Basophils % 0.2 Sodium 143 Potassium 3.4 L D Chloride 114 H Carbon Dioxide 23 Anion Gap 6 L BUN 17 D Creatinine 0.8 Creat Clearance w eGFR > 60 Random Glucose 113 H D Calcium 7.0 L Phosphorus 3.0 Magnesium 2.0 Total Bilirubin 0.3 AST 47 H ALT 68 Alkaline Phosphatase 107 Total Protein 5.0 L Albumin 1.9 L D Urine Color Yellow Urine Appearance Cloudy Urine pH 5.0 Ur Specific [place] 1.010 Urine Protein 2+ H Urine Glucose (UA) Negative Urine Ketones Negative Urine Blood 3+ H Urine Nitrite Negative Urine Bilirubin Negative Urine Urobilinogen Negative Ur Leukocyte Esterase 3+ H Urine RBC 318 Urine WBC 800 Ur Epithelial Cells Few Active Medications Generic Name Dose Route Start Last Admin Trade Name Freq PRN Reason Stop Dose Admin Acetaminophen 1,000 mg 01/24/17 09:08 Ofirmev Injection - IVPB 01/24/17 09:09 ONCE ONE Chlorhexidine Gluconate 1 applic 01/23/17 22:00 01/23/17 21:09 Hibiclens For Decolonization - TP 1 applic HS BALAJI Administration Clindamycin Phosphate 50 mls @ 100 mls/hr 01/23/17 18:00 01/24/17 09:02 Cleocin 600 Mg Premix Ivpb - IVPB 100 mls/hr Q8H-IV BALAJI Administration Sodium Chloride 1,000 mls @ 100 mls/hr 01/23/17 18:15 01/23/17 21:10 Normal Saline - IV 100 mls/hr ASDIR BALAJI Administration Meropenem 1 gm/ Dextrose 100 mls @ 200 mls/hr 01/23/17 19:15 01/24/17 02:50 IVPB 200 mls/hr Q8H-IV BALAJI Administration Protocol Morphine Sulfate 2 mg 01/23/17 17:01 Morphine Injection - IVPUSH Q4H PRN PAIN Mupirocin 1 applic 01/23/17 22:00 01/23/17 21:09 Bactroban Ointment (For Decolonization) - NS 01/28/17 21:59 1 applic BID BALAJI Administration ASSESSMENT/PLAN: Patient is a 36 year old Female, day 6 on admission, with PMH of gestational diabetes, iron deficiency anemia, who presented to ED with fever , chills, SOB, abdominal pain x 3 days. Pt admitted to ICU for sepsis secondary to Pyelonephritis and possible endometritis. Possible pyelonephritis with possible endometritis-Today is day 7. Presented with on Post day 6 with fever, abdominal pain, has Left sided CVA tenderness UA 3+ leukocyte esterase, WBC 1396 Continue IV NS @ 100mls IV Meropenam- Day 2 IV Clindamycin Day 2 IV Morphine 2mg Q4H for pain control Urine/Blood cultures pending, abx to be changed as per sensitivity Temp-100.7- Gave IV Tylenol, temp is still 101F, will give one dose of Motrin PO. Hepatosplenomegaly with transaminitis Transaminitis could be due to cholestasis of . CT abdomen/Pelvis without contrast: Hepatosplenomegaly Liver enzymes-improved today AST-47/ALT-68/ALP-107 Abdominal ultrasound with doppler to be done today to r/o hepatic/portal vein thrombosis Abdominal CT scan with IV contrast to be done today Spoke with Dr. Moreno over the phone and discussed the above mentioned plan. Shortness of breath most likely due to pleural effusion Pulmonary embolism ruled out, CTA negative CT chest showed small pleural effusions R>L, bibasilar atelectasis/ infiltrates Oxygen PRN Incentive spirometer care Breast pump regularly to avoid breast engorgement and mastitis Prophylaxis For DVT: On Scd's For GI: Not indicated FEN IV NS @ 100cc/hr Monitor electrolytes Regular diet Disposition- Admit to ICU for further evaluation. Illness, Investigation and Plan of care explained to the patient and her . They verbalized understanding. Case seen and discussed with Dr. Browne. Visit type - Emergency Visit Emergency Visit: Yes ED Registration Date: 01/23/17 Care time: The patient presented to the Emergency Department on the above date and was hospitalized for further evaluation of their emergent condition. - New Patient This patient is new to me today: No - Critical Care Critical Care patient: Yes Total Critical Care Time (in minutes): 35 Critical Care Statement: The care of this patient involved high complexity decision making to prevent further life threatening deterioration of the patient 's condition and/or to evaluate & treat vital organ system(s) failure or risk of failure.
--- NOTE | 2017-01-24 11:13 | EKG ---
Test Reason : Blood Pressure : / mmHG Vent. Rate : 090 BPM Atrial Rate : 090 BPM P-R Int : 120 ms QRS Dur : 084 ms QT Int : 356 ms P-R-T Axes : 055 049 040 degrees QTc Int : 435 ms NORMAL SINUS RHYTHM NONSPECIFIC ST ABNORMALITY ABNORMAL ECG NO PREVIOUS ECGS AVAILABLE Confirmed by BARBARA NEVILLE MD ([id number]) on 01/24/2017 11:12:31 AM Referred By: Confirmed By:BARBARA NEVILLE MD
[2017-01-24] MEDS ORDERED: KCL 10 MEQ IVPB 100 ML IVPB SCH (11:30)
[2017-01-24] MEDS: MUPIROCIN 2% TOPICAL OINTMENT FOR DECOLONIZATION NS SCH ×2 (12:06→22:00)
[2017-01-24] MEDS ORDERED: IBUPROFEN 400 MG TABLET (FP) PO ONE (13:00)
--- NOTE | 2017-01-24 13:32 | PN ---
Progress Note (short form) - Note Progress Note: No acute events Pain improved Being treated for endometritis On diet +Gas/BM Vital Signs Period Temp Pulse Resp BP Sys/Reyes Pulse Ox Last 24 Hr 97.5 F-101 F 54-99 18-29 110-132/65-80 98-100 Abd soft, less distended CBC, BMP 01/24/17 05:20 01/24/17 05:20 Diet as tolerated Continue antibiotics for endometritis
--- NOTE | 2017-01-24 13:47 | PN ---
Physical Exam: SUBJECTIVE: Patient seen and examined at bedside. Pt febrile 3x last night as per nurse, Tmax 100.7. Had rigors with first episode. Received IV tylenol, motrin, and ice. this AM, states that she is still having abdominal pain, but it is improved from yesterday. Pt still SOB, on 3L NC 02 sat 96%. However, no longer appears flushed. Still has increased vaginal bleeding, changing 8-10 pads yesterday. Pt for transfer to med-surg. OBJECTIVE: Vital Signs Period Temp Pulse Resp BP Sys/Reyes Pulse Ox Last 24 Hr 97.5 F-101 F 54-99 18-29 110-132/65-80 98-100 GENERAL: The patient is awake, alert, and fully oriented, in mild distress HEAD: Normal with no signs of trauma. EYES: PERRL, extraocular movements intact, sclera anicteric, conjunctiva clear. LUNGS: mild crackles appreciated in lung bases b/l HEART: Regular rate and rhythm, S1, S2 without murmur, rub or gallop. ABDOMEN: diffusely tender to palpation in mid-epigastric area, no guarding, no rebound, no hepatosplenomegaly, no masses. EXTREMITIES: 2+ posteiror tibial pulses, warm, well-perfused, 1+ edema b/l NEUROLOGICAL: Cranial nerves II through XII grossly intact. SKIN: Warm, normal tugor Laboratory Results - last 24 hr 01/23/17 01/24/17 01/24/17 18:30 05:20 05:20 WBC 9.4 RBC 3.22 L Hgb 10.2 L D Hct 30.2 L D MCV 93.8 MCH 31.8 MCHC 33.9 RDW 13.7 Plt Count 209 MPV 8.5 Neutrophils % 83.2 H Lymphocytes % 10.6 D Monocytes % 5.9 Eosinophils % 0.1 Basophils % 0.2 Sodium 143 Potassium 3.4 L D Chloride 114 H Carbon Dioxide 23 Anion Gap 6 L BUN 17 D Creatinine 0.8 Creat Clearance w eGFR > 60 Random Glucose 113 H D Calcium 7.0 L Phosphorus 3.0 Magnesium 2.0 Total Bilirubin 0.3 AST 47 H ALT 68 Alkaline Phosphatase 107 Total Protein 5.0 L Albumin 1.9 L D Urine Color Yellow Urine Appearance Cloudy Urine pH 5.0 Ur Specific [place] 1.010 Urine Protein 2+ H Urine Glucose (UA) Negative Urine Ketones Negative Urine Blood 3+ H Urine Nitrite Negative Urine Bilirubin Negative Urine Urobilinogen Negative Ur Leukocyte Esterase 3+ H Urine RBC 318 Urine WBC 800 Ur Epithelial Cells Few Active Medications Generic Name Dose Route Start Last Admin Trade Name Freq PRN Reason Stop Dose Admin Chlorhexidine Gluconate 1 applic 01/23/17 22:00 01/23/17 21:09 Hibiclens For Decolonization - TP 1 applic HS BALAJI Administration Clindamycin Phosphate 50 mls @ 100 mls/hr 01/23/17 18:00 01/24/17 09:02 Cleocin 600 Mg Premix Ivpb - IVPB 100 mls/hr Q8H-IV BALJAI Administration Meropenem 1 gm/ Dextrose 100 mls @ 200 mls/hr 01/23/17 19:15 01/24/17 10:12 IVPB 200 mls/hr Q8H-IV BALAJI Administration Protocol Morphine Sulfate 2 mg 01/23/17 17:01 Morphine Injection - IVPUSH Q4H PRN PAIN Mupirocin 1 applic 01/23/17 22:00 01/24/17 12:06 Bactroban Ointment (For Decolonization) - NS 01/28/17 21:59 1 applic BID BALAJI Administration ASSESSMENT/PLAN: 36 y/o F with PMH gestational diabetes, iron deficiency anemia, who presented to ED with fever, chills, SOB, abdominal pain x 3 days. Pt admitted to ICU for sepsis secondary to endometritis and pyelonephritis. #Sepsis secondary to endometritis and pyelonephritis -Blood cx: no growth -Urine cx: contaminated, if send repeat Ucx may be negative as pt receiving abx -Consulted ID: Dr. Bedoya -Consulted OB: Dr. Lindsay -Consulted Pulm: Dr. Mckeon -Pt received 1 dose vanc/zosyn in ED -Currently on Clinda 600 mg q8h IV, Meropenem 1g (Day2) -Pain control morphine 2mg q4h PRN #SOB secondary to pleural effusions -Continue with incentive spirometer -Currently on 3L NC 02, will titrate down as pt improves clinically #Elevated transaminases -Possibly d/t cholestasis of -Improved AST, ALT today 47, 49 (from 49/80) -Hepatitis panel negative -F/u abdominal CT w/contrast -F/u abdominal u/s with doppler to r/o portal vein thrombosis # care -Breast pump, but dump milk from first 24hrs d/t abx -To avoid mastitis #Prophylaxis DVT: SCD's F/E/N -Fluids have been d/c -Monitor electrolytes -Regular diet Disposition For transfer to [facility]-surg Visit type - Emergency Visit Emergency Visit: No - New Patient This patient is new to me today: No - Critical Care Critical Care patient: Yes Total Critical Care Time (in minutes): 32 Critical Care Statement: The care of this patient involved high complexity decision making to prevent further life threatening deterioration of the patient 's condition and/or to evaluate & treat vital organ system(s) failure or risk of failure.
--- NOTE | 2017-01-24 13:50 | PN ---
Teaching Attending Note Name of Resident: Sandee Mast ATTENDING PHYSICIAN STATEMENT I saw and evaluated the patient. I reviewed the resident's note and discussed the case with the resident. I agree with the resident's findings and plan as documented. SUBJECTIVE: Pt seen and examined in the ICU. Still with fevers, suprapubic pain. Some shortness of breath. OBJECTIVE: Last Vital Signs Temp Pulse Resp BP Pulse Ox 100.5 F H 90 18 124/78 99 01/24/17 12:00 01/24/17 12:00 01/24/17 12:00 01/24/17 12:00 01/24/17 09:00 Intake & Output 01/21/17 01/22/17 01/23/17 01/24/17 23:59 23:59 23:59 23:59 Intake Total 250 1600 Output Total 600 Balance 250 1000 Weight 186 lb 4.65 oz Gen: somnolent but easily arousable Heart: RRR Lung: decreased breath sounds at the bases Abd: soft, mild TTP suprapubic Ext: no edema CBC, BMP 01/24/17 05:20 01/24/17 05:20 Active Medications Chlorhexidine Gluconate (Hibiclens For Decolonization -) 1 applic TP HS BALAJI Last Admin: 01/23/17 21:09 Dose: 1 applic Clindamycin Phosphate (Cleocin 600 Mg Premix Ivpb -) 50 mls @ 100 mls/hr IVPB Q8H-IV BALAJI Last Admin: 01/24/17 09:02 Dose: 100 mls/hr Meropenem 1 gm/ Dextrose 100 mls @ 200 mls/hr IVPB Q8H-IV BALAJI PRN Reason: Protocol Last Admin: 01/24/17 10:12 Dose: 200 mls/hr Morphine Sulfate (Morphine Injection -) 2 mg IVPUSH Q4H PRN PRN Reason: PAIN Mupirocin (Bactroban Ointment (For Decolonization) -) 1 applic NS BID BALAJI Stop: 01/28/17 21:59 Last Admin: 01/24/17 12:06 Dose: 1 applic ASSESSMENT AND PLAN: Fevers UTI r/o Endometritis Elevated LFTs Atelectasis - antibiotics per ID - f/u cultures - pain control - replete lytes - incentive spirometry - trend LFTs - DVT prophylaxis - can monitor on floor
[2017-01-24] MEDS ORDERED: SODIUM CHLORIDE 1,000 ML IV SCH (14:15)
[2017-01-24] MEDS ORDERED: morphine CARPU-JECT 2 MG/1 ML DISP.SYRIN IVPUSH PRN (15:44)
--- NOTE | 2017-01-24 16:16 | PN ---
Teaching Attending Note Name of Resident: Britt Sanchez ATTENDING PHYSICIAN STATEMENT I saw and evaluated the patient. I reviewed the resident's note and discussed the case with the resident. I agree with the resident's findings and plan as documented. SUBJECTIVE:conitnues to have abdominal pain but improved since yesterday. some chills last night but now improved. continues to have bloody discharge. denies CP, N/V/C/D OBJECTIVE: Last Vital Signs Temp Pulse Resp BP Pulse Ox 99.5 F 89 20 124/76 99 01/24/17 14:00 01/24/17 14:00 01/24/17 14:00 01/24/17 14:00 01/24/17 09:00 General NAD, resting comfortable CV S1 S2 RRR no murmur/rub/gallop Lungs decreased sounds at the R base no crackles or wheezing ABdomen diffusely tender +distention Extremities trace pitting edema ASSESSMENT AND PLAN: 36yo F with gestational DM presented to the ER with fever, chills and dysuria and abdominal pain 1. Acute endometritis and UTI-Tm 100.8. clinically improved. abx switched to Meropenem and Clindamcyin. ID and OB on board. IVF and pain control. OB and ID consulted. 2. SOB-improved. CTA negative for PE. on abx. pulmonary consulted 3. Transaminitis- likely cholestasis of however concerned due to hepatomegaly. now resolved. possible hypotension prior to arrival which has now resolved. repeat CT scan ordered by ICU team. do not know why repeat CT scan ordered. not sure it would interchange agent at this time. doppler negative for hepatic vein thrombosis. 4. day 7- . breast pump to bedside. advised to pump and dump for next 24H. will evaluate if medications are compatible with 5. Pseudohypocalcemia- Corrected Ca 8.6 6. Hypokalemia- Kcl po 7. acute blood loss anemia- trend down in hgb. vaginal bleeding. post and likely some dilutional component. trend hgb. no indication for txn at this time 8. DVT ppx- Hep sq 9. clinically improved. can move to medical floors The care of this patient involved high complexity decision making to prevent further life threatening deterioration of the patient's condition and/or to evaluate & treat vital organ system(s) failure or risk of failure. 35 minutes critical care time
--- NOTE | 2017-01-24 16:55 | PN ---
Progress Note, Physician History of Present Illness: patient looks much better had fever currently no issues still with abd pain - Current Medication List Current Medications: Active Medications Acetaminophen (Tylenol -) 650 mg PO Q4H PRN PRN Reason: FEVER OR PAIN Chlorhexidine Gluconate (Hibiclens For Decolonization -) 1 applic TP HS BALAJI Sodium Chloride (Normal Saline -) 1,000 mls @ 100 mls/hr IV ASDIR BALAJI Last Admin: 01/24/17 14:31 Dose: 100 mls/hr Clindamycin Phosphate (Cleocin 600 Mg Premix Ivpb -) 50 mls @ 100 mls/hr IVPB Q8H-IV BALAJI Meropenem 1 gm/ Dextrose 100 mls @ 200 mls/hr IVPB Q8H-IV BALAJI PRN Reason: Protocol Morphine Sulfate (Morphine Injection -) 2 mg IVPUSH Q4H PRN PRN Reason: PAIN Mupirocin (Bactroban Ointment (For Decolonization) -) 1 applic NS BID BALAJI Stop: 01/28/17 21:59 - Objective Vital Signs: Vital Signs Temperature 99.5 F 01/24/17 14:00 Pulse Rate 89 01/24/17 14:00 Respiratory Rate 20 01/24/17 14:00 Blood Pressure 124/76 01/24/17 14:00 O2 Sat by Pulse Oximetry (%) 99 01/24/17 09:00 Constitutional: Yes: Calm, Mild Distress Cardiovascular: Yes: Regular Rate and Rhythm Respiratory: Yes: Regular, CTA Bilaterally Gastrointestinal: Yes: Soft, Hypoactive Bowel Sounds Musculoskeletal: Yes: WNL Extremities: Yes: WNL Neurological: Yes: Alert, Oriented Psychiatric: Yes: Alert, Oriented Labs: CBC, BMP 01/24/17 05:20 01/24/17 05:20 INR, PTT INR 1.02 (0.82-1.09) 01/23/17 09:23 Assessment/Plan Problem List - Problems (1) Endometritis following delivery Code(s): O86.12 - ENDOMETRITIS FOLLOWING DELIVERY (2) Pyelonephritis complicating , antepartum Code(s): O23.00 - INFECTIONS OF KIDNEY IN , UNSPECIFIED TRIMESTER (3) UTI (urinary tract infection) Code(s): N39.0 - URINARY TRACT INFECTION, SITE NOT SPECIFIED Qualifiers: Urinary tract infection type: acute pyelonephritis Qualified Code(s): N10 - Acute pyelonephritis fever sepsis plan continue current mgmt abx to continue close monitoring rest as per icu patient improving cc time 40 min
--- NOTE | 2017-01-24 19:29 | CON.GI ---
Consult Consult Specialty:: GASTROENTEROLOGY Reason for Consultation:: R/P PORTAL VEIN THROMBOSIS - History of Present Illness Chief Complaint: FEVER/ABDOMINAL AND PELVIC PAIN. ENDOMETRITIS AND UTI History of Present Illness: 36 YEAR OLD FEMALE S/P NORMAL VAGINAL DELIVERY NOW ADMITTED WITH ENDOMETRITIS AND POSSIBLE PYLEONEPHRITIS WITH ELEVATED LFT'S ON ADMISSION AND ENLARGED LIVER AND SPLEEN ON CT SCAN. THE CONSULT WAS CALLED BY THE RECOMMENDATION OF THE WEAVING SUPERVISOR ATTENDING SHE WAS CONCERNED WITH POSSIBLE PORTAL VEIN THROMBOSIS AND CHOLESTASIS OF . I HAVE REVIEWED HER ADMISSIONS FOR OB IN [facility] THERE IS NO MENTION OF LIVER DISEASE OR GALLBLADDER DISEASE. HER DELIVERY WAS UNEVENTFUL. SHE DEVELOPED FEVER 4 TO 5 DYAS AFTER DELIVERY AND THEN DEVELOPED LLQ AND RLQ PAIN. THE FEVERS AND ABDOMINAL PAIN WORSENED AND SHE DEVELOPED SOB AT REST AND SHE CAME TO THE ER. CT CHEST WAS NEGATIVE FOR PE. THE GB WAS DISTENDED AND WITHOUT STONES. THERE WAS HEPATOSPLENOMEGALY BUT NO MASS. A SONOGRAM WAS NEGATIVE FOR DILATED DUCTS AND/OR STONES. HER LFTs WERE MILDLY ELEVATED AND HAVE NEARLY NORMALIZED IN LESS THAN 24 HOURS AFTER TREATMENT FOR ENDOMETRITIS AND UTIM WERE BEGUN (FLUID AND IV ABX). HER URINE HAS NOT SHOWN NITRATES, BILIRUBIN OR UROBILIRUBIN. SHE DENIES ANY ITCHING DURING THE LAST PART OF HER . SHE WAS NEVER TOLD THAT HER HEPATIC FUNCTION WAS ABNORMAL DURING HER . SHE HAS NO HISTORY OF GALLSTONES. SHE FEELS BETTER TODAY AND HER ABDOMINAL PAIN IS LESS. SHE HAD A MILD TEMP THIS AM. US DOPPLER OF THE LIVER AND ABDOMEN DOES NOT REVEAL AND THROMBOSIS OR CLOT. - History Source History Provided By: Patient, Medical Record Limitations to Obtaining History: No Limitations - Past Medical History RECYCLING ATTENDANT: No: Alzheimer's Cardio/Vascular: No: AFIB Pulmonary: No: Asthma Gastrointestinal: No: Cancer, Crohn's Disease, Gastritis, GERD, GI Bleed, Inflamatory Bowel Disease Hepatobiliary: No: Cirrhosis Renal/: No: Renal Failure ...LMP: 04/25/13 ...: No - Past Surgical History Past Surgical History: Yes: None - Alcohol/Substance Use Hx Alcohol Use: No History of Substance Use: reports: None - Smoking History Smoking history: Never smoked Have you smoked in the past 12 months: No - Social History Usual Living Arrangement: With Spouse ADL: Independent Occupation: [employer] History of Recent Travel: No Home Medications - Allergies Allergies/Adverse Reactions: Allergies Allergy/AdvReac Type Severity Reaction Status Date / Time No Known Allergies Allergy Verified 01/23/17 07:59 - Home Medications Home Medications: Ambulatory Orders NK [No Known Home Medication] 01/23/17 Family Disease History - Family Disease History Family History: Unremarkable Review of Systems - Review of Systems Constitutional: reports: Chills, Fever, Lethargy, Loss of Appetite Eyes: reports: No Symptoms HENT: reports: No Symptoms Neck: reports: No Symptoms Cardiovascular: reports: Shortness of Breath Respiratory: reports: SOB Gastrointestinal: reports: Abdominal Pain Genitourinary: reports: Burning, Dysuria (MAY BE RELATED TO EPISOTOMY) Musculoskeletal: reports: No Symptoms Neurological: reports: No Symptoms Endocrine: reports: No Symptoms Hematology/Lymphatic: reports: No Symptoms Physical Exam-GI Vital Signs: Vital Signs Temperature 99 F 01/24/17 18:00 Pulse Rate 85 01/24/17 18:00 Respiratory Rate 20 01/24/17 18:00 Blood Pressure 106/46 01/24/17 18:00 O2 Sat by Pulse Oximetry (%) 99 01/24/17 09:00 Constitutional: Yes: Calm Eyes: Yes: WNL HENT: Yes: Atraumatic Neck: Yes: Supple Cardiovascular: Yes: Regular Rate and Rhythm Respiratory: Yes: Diminished (BREATH SOUNDS BASES/SPLINTING) ...Auscultate: Yes: Normoactive Bowel Sounds ...Palpate: Yes: Soft, Other (MILD DIFFUSE TENDERNESS NO GUARDING OR REBOUND ( MOSTLY IN THE RUQAND THE RLQ AND LLQ)) Extremities: Yes: WNL Labs: CBC, BMP 01/24/17 05:20 01/24/17 05:20 INR, PTT INR 1.02 (0.82-1.09) 01/23/17 09:23 Laboratory Tests 01/23/17 01/23/17 01/23/17 09:23 09:23 09:23 WBC 7.7 D RBC 3.85 Hgb 12.1 Hct 36.1 MCV 93.9 MCH 31.4 MCHC 33.4 RDW 14.0 Plt Count 243 D MPV 8.2 D Neutrophils % 81.9 Lymphocytes % 13.5 D Monocytes % 4.1 Eosinophils % 0.1 D Basophils % 0.4 INR 1.02 PTT (Actin FS) 28.2 Sodium Potassium Chloride Carbon Dioxide Anion Gap BUN Creatinine Creat Clearance w eGFR Random Glucose Lactic Acid Calcium Phosphorus Magnesium Total Bilirubin AST ALT Alkaline Phosphatase Creatine Kinase Troponin I Total Protein Albumin Lipase Urine Blood 3+ H Urine Nitrite Negative Urine Bilirubin Negative Urine Urobilinogen Negative Ur Leukocyte Esterase 3+ H Urine WBC 1396 01/23/17 01/23/17 01/23/17 09:23 09:23 12:50 WBC RBC Hgb Hct MCV MCH MCHC RDW Plt Count MPV Neutrophils % Lymphocytes % Monocytes % Eosinophils % Basophils % INR PTT (Actin FS) Sodium 142 Potassium 4.4 Chloride 110 H Carbon Dioxide 24 Anion Gap 8 BUN 14 D Creatinine 0.8 Creat Clearance w eGFR > 60 Random Glucose 80 Lactic Acid 1.0 Calcium 8.2 L Phosphorus Magnesium Total Bilirubin 0.3 AST 49 H ALT 80 H Alkaline Phosphatase 125 H Creatine Kinase 43 Troponin I 0.04 Total Protein 6.1 L Albumin 2.4 L Lipase 99 Urine Blood Urine Nitrite Urine Bilirubin Urine Urobilinogen Ur Leukocyte Esterase Urine WBC 01/23/17 01/24/17 01/24/17 18:30 05:20 05:20 WBC 9.4 RBC 3.22 L Hgb 10.2 L D Hct 30.2 L D MCV 93.8 MCH 31.8 MCHC 33.9 RDW 13.7 Plt Count 209 MPV 8.5 Neutrophils % 83.2 H Lymphocytes % 10.6 D Monocytes % 5.9 Eosinophils % 0.1 Basophils % 0.2 INR PTT (Actin FS) Sodium 143 Potassium 3.4 L D Chloride 114 H Carbon Dioxide 23 Anion Gap 6 L BUN 17 D Creatinine 0.8 Creat Clearance w eGFR > 60 Random Glucose 113 H D Lactic Acid Calcium 7.0 L Phosphorus 3.0 Magnesium 2.0 Total Bilirubin 0.3 AST 47 H ALT 68 Alkaline Phosphatase 107 Creatine Kinase Troponin I Total Protein 5.0 L Albumin 1.9 L D Lipase Urine Blood 3+ H Urine Nitrite Negative Urine Bilirubin Negative Urine Urobilinogen Negative Ur Leukocyte Esterase 3+ H Urine WBC 800 Imaging - Results Cat Scan: Image Reviewed Ultrasound: Image Reviewed Problem List - Problems (1) Endometritis following delivery Assessment/Plan: THERE IS NO EVIDENCE OF CHOLESTASIS OF NOW OR PRIOR TO DELIVERY. US DOPPLER RULES OUT PV THROMOBOSIS. THERE IS NO EVIDENCE OF BILIARY OBSTRUCTION. I BELIEVE THIS IS ENDOMETRITIS (POSSIBLY A TAMIE JUAN CORRINE TYPE SYNDROME FROM BACTERIA FROM PELVIS TO THE LIVER VIA LYMPHATICS OR BLOOD STREAM) AND THE ELEVATED LFT'S AND TRACE FLUID AROUND THE LIVER ARE SECONDARY TO THAT. HER TRANSAMINASES HAVE NEARLY NORMALIZED. CURRENTLY I WOULD CONTINUE THIS LINE OF TREATMENT, GIVE HER ADEQUATE ANALGESIA AND NO FURTHER HEPATIC INTERVENTION OR WORKUP WOULD BE NEEDED. Code(s): O86.12 - ENDOMETRITIS FOLLOWING DELIVERY (2) UTI (urinary tract infection) Code(s): N39.0 - URINARY TRACT INFECTION, SITE NOT SPECIFIED Qualifiers: Urinary tract infection type: acute pyelonephritis Qualified Code(s): N10 - Acute pyelonephritis
[2017-01-24] MEDS ORDERED: CHLORHEXIDINE GLUCONATE 4% CLEANSER FOR DECOLONIZATION TP SCH (22:00)
[2017-01-25] MEDS: MEROPENEM 1 GM in DEXTROSE 5%-WATER - 100 ML IVPB SCH ×2 (01:45→09:31)
[2017-01-25] MEDS: CLINDAMYCIN 600MG PREMIX IVPB 50 ML IVPB SCH ×3 (01:48→17:16)
[2017-01-25] MEDS: ACETAMINOPHEN 325 MG TABLET (FP) PO PRN ×3 (05:13→18:22)
[2017-01-25 06:18] LABS: MCH 32.3 pg (25.7-33.7); MCHC 34.7 g/dl (32.0-36.0); MEAN CELL VOLUME 93.2 fl (80-96); MEAN PLT VOLUME 8.6 fl (7.5-11.1); PLATELET COUNT 199 K/MM3 (134-434); RDW 14.1 % (11.6-15.6)
[2017-01-25 06:44] LABS: ALBUMIN 1.8 g/dl (3.4-5.0); ANION GAP 9 (8-16); CO2 23 mmol/L (21-32); GLUCOSE,RANDOM 92 mg/dL (74-106); MAGNESIUM 2.2 mg/dL (1.8-2.4)
[2017-01-25 06:47] LABS: ALK PHOS 104 U/L (45-117); BILIRUBIN,TOTAL 0.4 mg/dL (0.2-1.0); CREATININE 0.6 mg/dL (0.55-1.02); SGOT/AST 38 U/L (15-37); SGPT/ALT 61 U/L (12-78); TOT PROT 4.9 g/dl (6.4-8.2)
[2017-01-25 06:56] LABS: CALCIUM 6.8 mg/dL (8.5-10.1)
[2017-01-25] MEDS ORDERED: PT OWN MED DRAWER 7, Y5N ONE (09:27)
[2017-01-25] MEDS: MUPIROCIN 2% TOPICAL OINTMENT FOR DECOLONIZATION NS SCH ×2 (09:35→22:00)
[2017-01-25] MEDS ORDERED: PRENATAL VITAMINS W/ FOLIC ACID TABLET (FP) PO SCH (10:00)
[2017-01-25] MEDS ORDERED: NICOTINE 14 MG/24 HOURS TOPICAL PATCH TD SCH (10:00)
[2017-01-25] MEDS ORDERED: POLYETHYLENE GLYCOL 3350 119 GM BTL PO SCH (10:00)
--- NOTE | 2017-01-25 11:59 | PN ---
Teaching Attending Note Name of Resident: Paul Anderson ATTENDING PHYSICIAN STATEMENT I saw and evaluated the patient. I reviewed the resident's note and discussed the case with the resident. I agree with the resident's findings and plan as documented. SUBJECTIVE: Pt seen and examined in the ICU. Feels significantly improved. Low grade fevers overnight. Abdominal/suprapubic pain improved. Still some dypnea with exertion. OBJECTIVE: Last Vital Signs Temp Pulse Resp BP Pulse Ox 99 F 74 18 126/81 99 01/25/17 08:00 01/25/17 08:00 01/25/17 08:00 01/25/17 08:00 01/25/17 09:00 Intake & Output 01/22/17 01/23/17 01/24/17 01/25/17 23:59 23:59 23:59 23:59 Intake Total 250 1850 900 Output Total 600 600 Balance 250 1250 300 Weight 186 lb 4.65 oz Gen: NAD at rest Heart: RRR Lung: decreased breath sounds at the bases Abd: soft, nontender Ext: no edema CBC, BMP 01/25/17 05:20 01/25/17 05:20 Active Medications Acetaminophen (Tylenol -) 650 mg PO Q4H PRN PRN Reason: FEVER OR PAIN Last Admin: 01/25/17 05:13 Dose: 650 mg Chlorhexidine Gluconate (Hibiclens For Decolonization -) 1 applic TP [facility] Last Admin: 01/24/17 22:00 Dose: 1 applic Sodium Chloride (Normal Saline -) 1,000 mls @ 100 mls/hr IV ASDIR [facility]I Last Admin: 01/24/17 14:31 Dose: 100 mls/hr Clindamycin Phosphate (Cleocin 600 Mg Premix Ivpb -) 50 mls @ 100 mls/hr IVPB Q8H-IV [facility] Last Admin: 01/25/17 09:31 Dose: 100 mls/hr Meropenem 1 gm/ Dextrose 100 mls @ 200 mls/hr IVPB Q8H-IV [facility] PRN Reason: Protocol Last Admin: 01/25/17 09:31 Dose: 200 mls/hr Morphine Sulfate (Morphine Injection -) 2 mg IVPUSH Q4H PRN PRN Reason: PAIN Mupirocin (Bactroban Ointment (For Decolonization) -) 1 applic NS BID [facility] Stop: 01/28/17 21:59 Last Admin: 01/25/17 09:35 Dose: 1 applic Nicotine (Nicoderm Patch -) 14 mg TD DAILY [facility] Last Admin: 01/25/17 10:36 Dose: Not Given Polyethylene Glycol (Miralax (For Daily Use) -) 17 gm PO DAILY [facility] Last Admin: 01/25/17 09:35 Dose: 17 grams Multivit/Folic Acid/Iron ( Vitamins (Sjr) -) 1 tab PO DAILY [facility] Last Admin: 01/25/17 09:31 Dose: 1 tab ASSESSMENT AND PLAN: Fevers UTI r/o Endometritis Elevated LFTs Atelectasis - antibiotics per ID - f/u cultures - pain control - replete lytes - incentive spirometry - trend LFTs - DVT prophylaxis - can monitor on floor
--- NOTE | 2017-01-25 13:50 | PN ---
Teaching Attending Note Name of Resident: Britt Sanchez ATTENDING PHYSICIAN STATEMENT I saw and evaluated the patient. I reviewed the resident's note and discussed the case with the resident. I agree with the resident's findings and plan as documented. SUBJECTIVE:improved. continues to have abdominal pain but improved. vaginal bleeding improved. denies CP, SOB, fever, chills, N/V/C/D OBJECTIVE: Last Vital Signs Temp Pulse Resp BP Pulse Ox 99 F 74 18 126/81 99 01/25/17 08:00 01/25/17 08:00 01/25/17 08:00 01/25/17 08:00 01/25/17 09:00 General NAD, resting comfortable CV S1 S2 RRR no murmur/rub/gallop Lungs decreased sounds at the R base no crackles or wheezing ABdomen diffusely tender +distention Extremities no edema ASSESSMENT AND PLAN: 36yo F with gestational DM presented to the ER with fever, chills and dysuria and abdominal pain 1. Acute endometritis and UTI-Tm 100.4. clinically improved. on Meropenem and Clindamcyin day2, cx reported as negative. will d/c IVF. ID and OB on board. 2. SOB-improved. CTA negative for PE. on abx. pulmonary consulted 3. Transaminitis-likely due to infection. now resolved. doppler negative for hepatic vein thrombosis 4. day 7- . breast pump to bedside. advised to pump and dump 5. Pseudohypocalcemia- Corrected Ca 8.6 start on vitamins 6. Hypokalemia- resolved 7. acute blood loss anemia-continues to have vaginal bleeding but reports it as improved. Hgb stable. no indication for txn at this time 8. DVT ppx- Hep sq 9. clinically improved. can move to medical floors The care of this patient involved high complexity decision making to prevent further life threatening deterioration of the patient's condition and/or to evaluate & treat vital organ system(s) failure or risk of failure. 32 minutes critical care time
--- NOTE | 2017-01-25 13:57 | PN ---
Physical Exam: SUBJECTIVE: Patient seen and examined . Feels Good significantly improved. one episode of low grade fevers overnight. States Abdominal/suprapubic pain improved. states Still have some dypnea with exertion. OBJECTIVE: Vital Signs Period Temp Pulse Resp BP Sys/Reyes Pulse Ox Last 24 Hr 99 F-100.4 F 70-91 16-22 106-130/46-82 99-99 GENERAL: awake, alert, and fully oriented, in no acute distress. HEAD: Normal with no signs of trauma. ENT: Ears normal, moist mucous membranes. NECK: Supple. LUNGS: Breath sounds equal, decrease air entry at bases , no wheezes, no crackles, no accessory muscle use. HEART: Regular rate and rhythm, S1, S2 without murmur. ABDOMEN: Soft, tender on the right lower quadrant, distended, normoactive bowel sounds, no guarding, no rebound, EXTREMITIES: 2+ pulses, warm, well-perfused, mild edema b/l lower extremity NEUROLOGICAL: No facial droop, Cranial nerves II through XII grossly intact. Normal speech, gait not observed. PSYCH: Normal mood, normal affect. SKIN: Warm, dry, normal turgor, no rashes or lesions noted Laboratory Results - last 24 hr 01/25/17 01/25/17 05:20 05:20 WBC 8.0 RBC 3.27 L Hgb 10.6 L Hct 30.5 L MCV 93.2 MCH 32.3 MCHC 34.7 RDW 14.1 Plt Count 199 MPV 8.6 Sodium 143 Potassium 3.9 Chloride 111 H Carbon Dioxide 23 Anion Gap 9 BUN 12 D Creatinine 0.6 D Creat Clearance w eGFR > 60 Random Glucose 92 Calcium 6.8 L* Magnesium 2.2 Total Bilirubin 0.4 D AST 38 H ALT 61 Alkaline Phosphatase 104 Total Protein 4.9 L Albumin 1.8 L Active Medications Generic Name Dose Route Start Last Admin Trade Name Freq PRN Reason Stop Dose Admin Acetaminophen 650 mg 01/24/17 14:08 01/25/17 13:50 Tylenol - PO 650 mg Q4H PRN Administration FEVER OR PAIN Chlorhexidine Gluconate 1 applic 01/24/17 22:00 01/24/17 22:00 Hibiclens For Decolonization - TP 1 applic HS [facility] Administration Clindamycin Phosphate 50 mls @ 100 mls/hr 01/24/17 18:00 01/25/17 09:31 Cleocin 600 Mg Premix Ivpb - IVPB 100 mls/hr Q8H-IV [facility] Administration Meropenem 1 gm/ Dextrose 100 mls @ 200 mls/hr 01/24/17 18:00 01/25/17 09:31 IVPB 200 mls/hr Q8H-IV [facility] Administration Protocol Morphine Sulfate 2 mg 01/24/17 15:44 Morphine Injection - IVPUSH Q4H PRN PAIN Mupirocin 1 applic 01/24/17 22:00 01/25/17 09:35 Bactroban Ointment (For Decolonization) - NS 01/28/17 21:59 1 applic BID [facility] Administration Nicotine 14 mg 01/25/17 10:00 01/25/17 10:36 Nicoderm Patch - TD Not Given DAILY [facility] Polyethylene Glycol 17 gm 01/25/17 10:00 01/25/17 09:35 Miralax (For Daily Use) - PO 17 grams DAILY [facility] Administration Multivit/Folic Acid/Iron 1 tab 01/25/17 10:00 01/25/17 09:31 Vitamins (Sjr) - PO 1 tab DAILY [facility] Administration Microbiology 01/23/17 09:10 Blood - Peripheral Venous Blood Culture - Preliminary NO GROWTH OBTAINED AFTER 48 HOURS, INCUBATION TO CONTINUE FOR 3 DAYS. 01/23/17 09:10 Blood - Peripheral Venous Blood Culture - Preliminary NO GROWTH OBTAINED AFTER 48 HOURS, INCUBATION TO CONTINUE FOR 3 DAYS. 01/23/17 09:23 Urine - Urine Clean Catch Urine Culture - Final Contaminated: Please Repeat 01/23/17 18:30 Urine For Antigen Detection Legionella Antigen - Final 01/23/17 18:30 Urine For Antigen Detection Streptococcus pneumoniae Antigen (M - Final ASSESSMENT/PLAN: Fevers UTI r/o Endometritis Elevated LFTs Atelectasis Constipation - antibiotics per ID on clinda and meropenem. - f/u cultures: BC no growth, urine contaminated. - pain control - replete lytes - incentive spirometry - monitor vitals and intake/output - trend LFTs - on miralax for constipation - DVT prophylaxis on scd Transfer to med surg floor. - Visit type - Emergency Visit Emergency Visit: Yes ED Registration Date: 01/23/17 Care time: The patient presented to the Emergency Department on the above date and was hospitalized for further evaluation of their emergent condition. - New Patient This patient is new to me today: Yes Date on this admission: 01/25/17 - Critical Care Critical Care patient: No
[2017-01-25] MEDS ORDERED: morphine CARPU-JECT 2 MG/1 ML DISP.SYRIN IVPUSH PRN (15:16)
[2017-01-25] MEDS ORDERED: BISACODYL 5 MG TABLET.DR (FP) PO PRN (15:28)
--- NOTE | 2017-01-25 16:36 | PN ---
Physical Exam: SUBJECTIVE: Patient seen and examined at bedside. Overnight, had temperature Tmax 100.4 as per nurse. Resolved with Tylenol. States that she is no longer feeling as SOB, and has had decreased vaginal bleeding. OBJECTIVE: Vital Signs Period Temp Pulse Resp BP Sys/Reyes Pulse Ox Last 24 Hr 99 F-100.4 F 70-91 16-22 106-130/46-85 99-99 GENERAL: The patient is awake, alert, and fully oriented, in no acute distress. not on NC HEAD: Normal with no signs of trauma. EYES: PERRL, extraocular movements intact, sclera anicteric, conjunctiva clear. No ptosis. NECK: Trachea midline, full range of motion, supple. LUNGS: Breath sounds equal, clear to auscultation bilaterally, no wheezes, no crackles, no accessory muscle use. HEART: Regular rate and rhythm, S1, S2 without murmur, rub or gallop. ABDOMEN: Soft, tender to palpation- suprapubic, mid-epigastric areas, normoactive bowel sounds, no guarding, no rebound EXTREMITIES: 2+ posterior tibial pulses, warm, well-perfused, trace edema. NEUROLOGICAL: Cranial nerves II through XII grossly intact. Laboratory Results - last 24 hr 01/25/17 01/25/17 05:20 05:20 WBC 8.0 RBC 3.27 L Hgb 10.6 L Hct 30.5 L MCV 93.2 MCH 32.3 MCHC 34.7 RDW 14.1 Plt Count 199 MPV 8.6 Sodium 143 Potassium 3.9 Chloride 111 H Carbon Dioxide 23 Anion Gap 9 BUN 12 D Creatinine 0.6 D Creat Clearance w eGFR > 60 Random Glucose 92 Calcium 6.8 L* Magnesium 2.2 Total Bilirubin 0.4 D AST 38 H ALT 61 Alkaline Phosphatase 104 Total Protein 4.9 L Albumin 1.8 L Active Medications Generic Name Dose Route Start Last Admin Trade Name Freq PRN Reason Stop Dose Admin Acetaminophen 650 mg 01/25/17 15:16 Tylenol - PO Q4H PRN FEVER OR PAIN Bisacodyl 5 mg 01/25/17 15:28 Dulcolax - PO DAILY PRN CONSTIPATION Chlorhexidine Gluconate 1 applic 01/25/17 22:00 Hibiclens For Decolonization - TP HS [facility] Clindamycin Phosphate 50 mls @ 100 mls/hr 01/25/17 18:00 Cleocin 600 Mg Premix Ivpb - IVPB Q8H-IV [facility] Meropenem 1 gm/ Dextrose 100 mls @ 200 mls/hr 01/25/17 18:00 IVPB Q8H-IV [facility] Protocol Morphine Sulfate 2 mg 01/25/17 15:16 Morphine Injection - IVPUSH Q4H PRN PAIN Mupirocin 1 applic 01/25/17 22:00 Bactroban Ointment (For Decolonization) - NS 01/28/17 21:59 BID [facility] Polyethylene Glycol 17 gm 01/26/17 10:00 Miralax (For Daily Use) - PO DAILY [facility] Multivit/Folic Acid/Iron 1 tab 01/26/17 10:00 Vitamins (Sjr) - PO DAILY [facility] ASSESSMENT/PLAN: 36 y/o F with PMH gestational diabetes, iron deficiency anemia, who presented to ED with fever, chills, SOB, abdominal pain x 3 days. Pt admitted to ICU for sepsis secondary to endometritis and pyelonephritis. #Sepsis secondary to endometritis and pyelonephritis -Consulted ID: Dr. Bedoya -Consulted OB: Dr. Lindsay -Consulted Pulm: Dr. 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 -Improved AST, ALT today 38, 61 respectively -Hepatitis panel negative -Abdominal u/s with doppler: WNL # care -Breast pump, but dump milk from first 24hrs d/t abx -To avoid mastitis #Prophylaxis DVT: SCD's F/E/N -Fluids have been d/c -Monitor electrolytes -Regular diet Disposition For transfer to [facility]-surg Visit type - Emergency Visit Emergency Visit: No - New Patient This patient is new to me today: No - Critical Care Critical Care patient: Yes Total Critical Care Time (in minutes): 32 Critical Care Statement: The care of this patient involved high complexity decision making to prevent further life threatening deterioration of the patient 's condition and/or to evaluate & treat vital organ system(s) failure or risk of failure.
--- NOTE | 2017-01-25 16:42 | PN ---
Progress Note, Physician History of Present Illness: patient looks much better no new issues improving - Current Medication List Current Medications: Active Medications Acetaminophen (Tylenol -) 650 mg PO Q4H PRN PRN Reason: FEVER OR PAIN Bisacodyl (Dulcolax -) 5 mg PO DAILY PRN PRN Reason: CONSTIPATION Chlorhexidine Gluconate (Hibiclens For Decolonization -) 1 applic TP HS [facility] Clindamycin Phosphate (Cleocin 600 Mg Premix Ivpb -) 50 mls @ 100 mls/hr IVPB Q8H-IV [facility] Morphine Sulfate (Morphine Injection -) 2 mg IVPUSH Q4H PRN PRN Reason: PAIN Mupirocin (Bactroban Ointment (For Decolonization) -) 1 applic NS BID [facility] Stop: 01/28/17 21:59 Polyethylene Glycol (Miralax (For Daily Use) -) 17 gm PO DAILY [facility] Multivit/Folic Acid/Iron ( Vitamins (Sjr) -) 1 tab PO DAILY [facility] - Objective Vital Signs: Vital Signs Temperature 99 F 01/25/17 08:00 Pulse Rate 76 01/25/17 12:00 Respiratory Rate 16 01/25/17 12:00 Blood Pressure 122/85 01/25/17 12:00 O2 Sat by Pulse Oximetry (%) 99 01/25/17 09:00 Constitutional: Yes: No Distress, Calm Cardiovascular: Yes: Regular Rate and Rhythm Respiratory: Yes: Regular, CTA Bilaterally Gastrointestinal: Yes: Normal Bowel Sounds, Soft Musculoskeletal: Yes: WNL Extremities: Yes: WNL Neurological: Yes: Alert, Oriented Psychiatric: Yes: Alert, Oriented Labs: CBC, BMP 01/25/17 05:20 01/25/17 05:20 INR, PTT INR 1.02 (0.82-1.09) 01/23/17 09:23 Assessment/Plan Problem List - Problems (1) Endometritis following delivery Code(s): O86.12 - ENDOMETRITIS FOLLOWING DELIVERY (2) Pyelonephritis complicating , antepartum Code(s): O23.00 - INFECTIONS OF KIDNEY IN , UNSPECIFIED TRIMESTER (3) UTI (urinary tract infection) Code(s): N39.0 - URINARY TRACT INFECTION, SITE NOT SPECIFIED Qualifiers: Urinary tract infection type: acute pyelonephritis Qualified Code(s): N10 - Acute pyelonephritis fever sepsis plan continue current mgmt will change to ertapenam from meropenam close monitoring rest as per icu patient improving cc time 40 min
--- NOTE | 2017-01-25 17:26 | PN ---
Progress Note, Physician Chief Complaint: Fells improved, ambulated, used incentive spirometer No chills overnight Pumping the breasts and dumping History of Present Illness: 36 yo P2 had care at [facility] with me, course only complicated by: 1. Advanced maternal age and 2. Well controlled Gestational DM; She had Ruptured membranes at term and uneventful delivery 12-14hrs later on , was discharged on 01/19/17 as per routine. She denies sick contacts at home - Current Medication List Current Medications: Active Medications Acetaminophen (Tylenol -) 650 mg PO Q4H PRN PRN Reason: FEVER OR PAIN Bisacodyl (Dulcolax -) 5 mg PO DAILY PRN PRN Reason: CONSTIPATION Chlorhexidine Gluconate (Hibiclens For Decolonization -) 1 applic TP [facility] Clindamycin Phosphate (Cleocin 600 Mg Premix Ivpb -) 50 mls @ 100 mls/hr IVPB Q8H-IV [facility] Last Admin: 01/25/17 17:16 Dose: 100 mls/hr Ertapenem 1 gm/ Sodium (Chloride) 50 mls @ 100 mls/hr IVPB DAILY [facility] PRN Reason: Protocol Morphine Sulfate (Morphine Injection -) 2 mg IVPUSH Q4H PRN PRN Reason: PAIN Mupirocin (Bactroban Ointment (For Decolonization) -) 1 applic NS BID [facility] Stop: 01/28/17 21:59 Polyethylene Glycol (Miralax (For Daily Use) -) 17 gm PO DAILY [facility] Multivit/Folic Acid/Iron ( Vitamins (Sjr) -) 1 tab PO DAILY [facility] - Objective Vital Signs: Vital Signs Temperature 99 F 01/25/17 08:00 Pulse Rate 76 01/25/17 12:00 Respiratory Rate 16 01/25/17 12:00 Blood Pressure 122/85 01/25/17 12:00 O2 Sat by Pulse Oximetry (%) 99 01/25/17 09:00 Constitutional: Yes: Well Nourished, No Distress, Calm, Pallor HENT: Yes: WNL Neck: Yes: WNL Cardiovascular: Yes: Regular Rate and Rhythm (mild bibasilar rails) Gastrointestinal: Yes: WNL, Soft Genitourinary: Yes: CVA Tenderness - Right Breast(s): Yes: WNL Musculoskeletal: Yes: WNL Extremities: Yes: WNL Edema: No Integumentary: Yes: WNL Neurological: Yes: WNL ...Motor Strength: WNL Psychiatric: Yes: WNL Labs: CBC, BMP 01/25/17 05:20 01/25/17 05:20 INR, PTT INR 1.02 (0.82-1.09) 01/23/17 09:23 Assessment/Plan 36 yo PPD # 8 admited with fever and SOB, likely Pyelonephritis with some effect on the lungs, doing better, await transfer from ICU All labs improving; will continue IV Abx continue Insentive spirometer Continue breast care to prevent Mastitis Once afibrile on PO antibiotics for 24hrs will d/c home on antibiotics to complete 10 day course
[2017-01-25] MEDS ORDERED: MEROPENEM 1 GM in DEXTROSE 5%-WATER - 100 ML IVPB SCH (18:00)
[2017-01-25] MEDS: ERTAPENEM SODIUM 1 GM in SODIUM CHLORIDE 50 ML IVPB SCH (18:21)
[2017-01-25] MEDS ORDERED: IBUPROFEN 800 MG/8 ML IJ IVPB ONE (20:42)
[2017-01-25] MEDS: CHLORHEXIDINE GLUCONATE 4% CLEANSER FOR DECOLONIZATION TP SCH (22:00)
[2017-01-26] MEDS: CLINDAMYCIN 600MG PREMIX IVPB 50 ML IVPB SCH ×3 (03:18→17:25)
[2017-01-26 07:33] LABS: MCH 31.3 pg (25.7-33.7); MCHC 33.7 g/dl (32.0-36.0); MEAN CELL VOLUME 93.1 fl (80-96); MEAN PLT VOLUME 8.2 fl (7.5-11.1); PLATELET COUNT 206 K/MM3 (134-434); RDW 13.7 % (11.6-15.6); WHITE BLOOD COUNT 7.2 K/mm3 (4.0-10.0)
[2017-01-26] MEDS: ACETAMINOPHEN 325 MG TABLET (FP) PO PRN ×3 (07:33→19:26)
[2017-01-26 07:59] LABS: ALBUMIN 1.9 g/dl (3.4-5.0); ANION GAP 5 (8-16); CALCIUM 7.2 mg/dL (8.5-10.1); CO2 26 mmol/L (21-32); GLUCOSE,RANDOM 86 mg/dL (74-106); SGOT/AST 30 U/L (15-37); SGPT/ALT 51 U/L (12-78)
[2017-01-26 08:01] LABS: ALK PHOS 99 U/L (45-117); BILIRUBIN,TOTAL 0.3 mg/dL (0.2-1.0); CREATININE 0.6 mg/dL (0.55-1.02)
[2017-01-26] MEDS: PRENATAL VITAMINS W/ FOLIC ACID TABLET (FP) PO SCH (09:06)
[2017-01-26] MEDS: POLYETHYLENE GLYCOL 3350 119 GM BTL PO SCH (09:09)
[2017-01-26] MEDS ORDERED: PT OWN MED DRAWER 7, Y5N ONE (09:10)
[2017-01-26] MEDS: ERTAPENEM SODIUM 1 GM in SODIUM CHLORIDE 50 ML IVPB SCH (09:14)
[2017-01-26] MEDS: MUPIROCIN 2% TOPICAL OINTMENT FOR DECOLONIZATION NS SCH ×2 (09:16→22:28)
--- NOTE | 2017-01-26 09:28 | PN ---
Progress Note (short form) - Note Progress Note: having some dysuria and urinary urgency. states she was not experiencing this earlier and that it started last night. denies fever, chills, abdominal pain, Current Medications Generic Name Dose Route Start Last Admin Trade Name Magui PRN Reason Stop Dose Admin Acetaminophen 650 mg 01/25/17 15:16 01/26/17 07:33 Tylenol - PO 650 mg Q4H PRN Administration FEVER OR PAIN Bisacodyl 5 mg 01/25/17 15:28 Dulcolax - PO DAILY PRN CONSTIPATION Chlorhexidine Gluconate 1 applic 01/25/17 22:00 01/25/17 22:00 Hibiclens For Decolonization - TP Not Given HS [facility] Clindamycin Phosphate 50 mls @ 100 mls/hr 01/25/17 18:00 01/26/17 09:06 Cleocin 600 Mg Premix Ivpb - IVPB 100 mls/hr Q8H-IV [facility] Administration Ertapenem 1 gm/ Sodium 50 mls @ 100 mls/hr 01/25/17 17:00 01/26/17 09:14 Chloride IVPB 100 mls/hr DAILY [facility] Administration Protocol Mupirocin 1 applic 01/25/17 22:00 01/26/17 09:16 Bactroban Ointment (For Decolonization) - NS 01/28/17 21:59 Not Given BID [facility] Polyethylene Glycol 17 gm 01/26/17 10:00 01/26/17 09:09 Miralax (For Daily Use) - PO Not Given DAILY [facility] Multivit/Folic Acid/Iron 1 tab 01/26/17 10:00 01/26/17 09:06 Vitamins (Sjr) - PO 1 tab DAILY [facility] Administration Last Vital Signs Temp Pulse Resp BP Pulse Ox 97.9 F 61 20 133/84 98 01/26/17 07:00 01/26/17 07:00 01/26/17 07:56 01/26/17 07:00 01/26/17 07:56 General NAD, resting comfortable CV S1 S2 RRR no murmur/rub/gallop Lungs CTA B/L no wheezing/rales/rhonchi ABdomen diffusely tender +distention Extremities no edema CBCD WBC 7.2 K/mm3 (4.0-10.0) 01/26/17 06:00 RBC 3.39 M/mm3 (3.60-5.2) L 01/26/17 06:00 Hgb 10.6 GM/dL (10.7-15.3) L 01/26/17 06:00 Hct 31.5 % (32.4-45.2) L 01/26/17 06:00 MCV 93.1 fl (80-96) 01/26/17 06:00 MCHC 33.7 g/dl (32.0-36.0) 01/26/17 06:00 RDW 13.7 % (11.6-15.6) 01/26/17 06:00 Plt Count 206 K/MM3 (134-434) 01/26/17 06:00 MPV 8.2 fl (7.5-11.1) 01/26/17 06:00 CMP Sodium 142 mmol/L (136-145) 01/26/17 06:00 Potassium 4.3 mmol/L (3.5-5.1) 01/26/17 06:00 Chloride 111 mmol/L (98-107) H 01/26/17 06:00 Carbon Dioxide 26 mmol/L (21-32) 01/26/17 06:00 Anion Gap 5 (8-16) L 01/26/17 06:00 BUN 18 mg/dL (7-18) D 01/26/17 06:00 Creatinine 0.6 mg/dL (0.55-1.02) 01/26/17 06:00 Creat Clearance w eGFR > 60 (>60) 01/26/17 06:00 Calcium 7.2 mg/dL (8.5-10.1) L 01/26/17 06:00 Total Bilirubin 0.3 mg/dL (0.2-1.0) D 01/26/17 06:00 AST 30 U/L (15-37) D 01/26/17 06:00 ALT 51 U/L (12-78) 01/26/17 06:00 Alkaline Phosphatase 99 U/L (45-117) 01/26/17 06:00 Total Protein 5.0 g/dl (6.4-8.2) L 01/26/17 06:00 Albumin 1.9 g/dl (3.4-5.0) L 01/26/17 06:00 Microbiology 01/23/17 09:10 Blood Culture - Preliminary Blood - Peripheral Venous NO GROWTH OBTAINED AFTER 72 HOURS, INCUBATION TO CONTINUE FOR 2 DAYS. 01/23/17 09:10 Blood Culture - Preliminary Blood - Peripheral Venous NO GROWTH OBTAINED AFTER 72 HOURS, INCUBATION TO CONTINUE FOR 2 DAYS. 01/25/17 12:30 Urine Culture - Final Urine - Urine Clean Catch NO GROWTH OBTAINED ASSESSMENT AND PLAN: 36yo F with gestational DM presented to the ER with fever, chills and dysuria and abdominal pain 1. Acute endometritis and UTI-afebrile 48H. abx switch to ertapenem yesterday. leukcytosis is stable. will repeat UA to ensure improvement since now have dyuria symptoms. will need to consider u/s if symptoms dont improve. ID and OB on board. 2. SOB-improved. CTA negative for PE. on abx. pulmonary consulted 3. Transaminitis-likely due to infection. now resolved. doppler negative for hepatic vein thrombosis 4. day 7- . breast pump to bedside. advised to pump and dump 5. Pseudohypocalcemia- Corrected Ca 8.6. on vitamins 6. Hypokalemia- resolved 7. acute blood loss anemia-continues to have vaginal bleeding but reports it as improved. Hgb stable. no indication for txn at this time 8. DVT ppx- Hep sq Visit type - Emergency Visit Emergency Visit: Yes ED Registration Date: 01/23/17 Care time: The patient presented to the Emergency Department on the above date and was hospitalized for further evaluation of their emergent condition. - New Patient This patient is new to me today: No - Critical Care Critical Care patient: No - Discharge Referral Referred to [facility] Med P.C.: No
[2017-01-26] MEDS ORDERED: NICOTINE 14 MG/24 HOURS TOPICAL PATCH TD SCH (10:00)
[2017-01-26 11:12] LABS: URINE APPEARANCE CLEAR; URINE BILIRUBIN NEGATIVE (NEGATIVE); URINE BLOOD NEGATIVE (NEGATIVE); URINE COLOR YELLOW; URINE GLUCOSE (UA) NEGATIVE (NEGATIVE); URINE KETONE NEGATIVE (NEGATIVE); URINE NITRITE NEGATIVE (NEGATIVE); URINE PROTEIN NEGATIVE (NEGATIVE); URINE UROBILINOGEN NEGATIVE mg/dL (0.2-1.0)
[2017-01-26 11:13] LABS: URINE LEUK ESTERASE 1+ (NEGATIVE)
[2017-01-26 11:14] LABS: URINE MUCUS RARE; URINE RBC 1 /hpf (0-3); URINE WBC 7 /hpf (3-5)
--- NOTE | 2017-01-26 14:19 | PN ---
Progress Note, Physician History of Present Illness: patient looks much better no new issues improving able to walk around - Current Medication List Current Medications: Active Medications Acetaminophen (Tylenol -) 650 mg PO Q4H PRN PRN Reason: FEVER OR PAIN Last Admin: 01/26/17 14:16 Dose: 650 mg Bisacodyl (Dulcolax -) 5 mg PO DAILY PRN PRN Reason: CONSTIPATION Chlorhexidine Gluconate (Hibiclens For Decolonization -) 1 applic TP [facility] Last Admin: 01/25/17 22:00 Dose: Not Given Clindamycin Phosphate (Cleocin 600 Mg Premix Ivpb -) 50 mls @ 100 mls/hr IVPB Q8H-IV [facility] Last Admin: 01/26/17 09:06 Dose: 100 mls/hr Ertapenem 1 gm/ Sodium (Chloride) 50 mls @ 100 mls/hr IVPB DAILY [facility] PRN Reason: Protocol Last Admin: 01/26/17 09:14 Dose: 100 mls/hr Mupirocin (Bactroban Ointment (For Decolonization) -) 1 applic NS BID [facility] Stop: 01/28/17 21:59 Last Admin: 01/26/17 09:16 Dose: Not Given Polyethylene Glycol (Miralax (For Daily Use) -) 17 gm PO DAILY [facility] Last Admin: 01/26/17 09:09 Dose: Not Given Multivit/Folic Acid/Iron ( Vitamins (Sjr) -) 1 tab PO DAILY [facility] Last Admin: 01/26/17 09:06 Dose: 1 tab - Objective Vital Signs: Vital Signs Temperature 97.9 F 01/26/17 07:00 Pulse Rate 61 01/26/17 07:00 Respiratory Rate 20 01/26/17 07:56 Blood Pressure 133/84 01/26/17 07:00 O2 Sat by Pulse Oximetry (%) 98 01/26/17 07:56 Constitutional: Yes: No Distress, Calm Cardiovascular: Yes: Regular Rate and Rhythm Respiratory: Yes: Regular, CTA Bilaterally Gastrointestinal: Yes: Normal Bowel Sounds, Soft Musculoskeletal: Yes: WNL Extremities: Yes: WNL Neurological: Yes: Alert, Oriented Psychiatric: Yes: Alert, Oriented Labs: CBC, BMP 01/26/17 06:00 01/26/17 06:00 INR, PTT INR 1.02 (0.82-1.09) 01/23/17 09:23 Assessment/Plan Problem List - Problems (1) Endometritis following delivery Code(s): O86.12 - ENDOMETRITIS FOLLOWING DELIVERY (2) Pyelonephritis complicating , antepartum Code(s): O23.00 - INFECTIONS OF KIDNEY IN , UNSPECIFIED TRIMESTER (3) UTI (urinary tract infection) Code(s): N39.0 - URINARY TRACT INFECTION, SITE NOT SPECIFIED Qualifiers: Urinary tract infection type: acute pyelonephritis Qualified Code(s): N10 - Acute pyelonephritis fever sepsis plan continue current mgmt continue abx for now rest as per primary team final cx awaited
--- NOTE | 2017-01-26 18:28 | PN ---
Progress Note, Physician History of Present Illness: She reports feeling better, has some burning with urination, no SOB denies fever or chills - Current Medication List Current Medications: Active Medications Acetaminophen (Tylenol -) 650 mg PO Q4H PRN PRN Reason: FEVER OR PAIN Last Admin: 01/26/17 14:16 Dose: 650 mg Bisacodyl (Dulcolax -) 5 mg PO DAILY PRN PRN Reason: CONSTIPATION Chlorhexidine Gluconate (Hibiclens For Decolonization -) 1 applic TP HS COUNTS INCLUDE 234 BEDS AT THE [facility] Last Admin: 01/25/17 22:00 Dose: Not Given Clindamycin Phosphate (Cleocin 600 Mg Premix Ivpb -) 50 mls @ 100 mls/hr IVPB Q8H-IV BALAJI Last Admin: 01/26/17 17:25 Dose: 100 mls/hr Ertapenem 1 gm/ Sodium (Chloride) 50 mls @ 100 mls/hr IVPB DAILY BALAJI PRN Reason: Protocol Last Admin: 01/26/17 09:14 Dose: 100 mls/hr Mupirocin (Bactroban Ointment (For Decolonization) -) 1 applic NS BID COUNTS INCLUDE 234 BEDS AT THE [facility] Stop: 01/28/17 21:59 Last Admin: 01/26/17 09:16 Dose: Not Given Polyethylene Glycol (Miralax (For Daily Use) -) 17 gm PO DAILY COUNTS INCLUDE 234 BEDS AT THE [facility] Last Admin: 01/26/17 09:09 Dose: Not Given Multivit/Folic Acid/Iron ( Vitamins (Sjr) -) 1 tab PO DAILY COUNTS INCLUDE 234 BEDS AT THE [facility] Last Admin: 01/26/17 09:06 Dose: 1 tab - Objective Vital Signs: Vital Signs Temperature 98.1 F 01/26/17 17:17 Pulse Rate 58 L 01/26/17 17:17 Respiratory Rate 16 01/26/17 17:17 Blood Pressure 129/78 01/26/17 17:17 O2 Sat by Pulse Oximetry (%) 98 01/26/17 07:56 Constitutional: Yes: Well Nourished (apears much more up beat) HENT: Yes: WNL Neck: Yes: WNL Cardiovascular: Yes: Regular Rate and Rhythm Respiratory: Yes: Regular (decreased breath sounds on the right) Gastrointestinal: Yes: Normal Bowel Sounds, Soft Genitourinary: Yes: WNL, CVA Tenderness - Right Breast(s): Yes: WNL Extremities: Yes: WNL Edema: No Integumentary: Yes: WNL Neurological: Yes: WNL ...Motor Strength: WNL Psychiatric: Yes: WNL Labs: CBC, BMP 01/26/17 06:00 01/26/17 06:00 INR, PTT INR 1.02 (0.82-1.09) 01/23/17 09:23 Assessment/Plan 36 yo PPD # 9 admited with fever and SOB, likely Pyelonephritis with some effect on the lungs, doing better, afibrile now for 48hr; will continue IV Abx till am, than if afibrile switch to PO Will appriciate ID input, consider Ceclor/Clinda continue Insentive spirometer Continue breast care to prevent Mastitis Once afibrile on PO antibiotics for 24hrs will d/c home on antibiotics to complete 10 day course
[2017-01-26] MEDS: CHLORHEXIDINE GLUCONATE 4% CLEANSER FOR DECOLONIZATION TP SCH (22:29)
[2017-01-27] MEDS: CLINDAMYCIN 600MG PREMIX IVPB 50 ML IVPB SCH ×2 (01:51→09:00)
[2017-01-27] MEDS: ACETAMINOPHEN 325 MG TABLET (FP) PO PRN ×2 (02:02→14:40)
[2017-01-27] MEDS ORDERED: PT OWN MED DRAWER 7, Y5N ONE ×2 (04:01→08:35)
[2017-01-27] MEDS: PRENATAL VITAMINS W/ FOLIC ACID TABLET (FP) PO SCH (09:01)
[2017-01-27] MEDS: ERTAPENEM SODIUM 1 GM in SODIUM CHLORIDE 50 ML IVPB SCH (09:22)
--- NOTE | 2017-01-27 09:23 | PN ---
Physical Exam: SUBJECTIVE: Patient seen and examined at bedside. Pt afebrile last night, but received Tylenol last night for pain. This morning, pt states that she is in less pain and has mild dysuria. As per pt, her dysuria usually gets worse as the day progresses. OBJECTIVE: Vital Signs Period Temp Pulse Resp BP Sys/Reyes Pulse Ox Last 24 Hr 97.6 F-98.7 F 56-67 16-20 129-136/76-84 95-95 GENERAL: The patient is awake, alert, and fully oriented, in no acute distress. HEAD: Normal with no signs of trauma. EYES: PERRL, extraocular movements intact, sclera anicteric, conjunctiva clear. NECK: Trachea midline, supple. LUNGS: Breath sounds equal, clear to auscultation bilaterally, no wheezes, no crackles, no accessory muscle use. HEART: Regular rate and rhythm, S1, S2 without murmur, rub or gallop. ABDOMEN: tender to palpation RUQ, mid-epigastric area, normoactive bowel sounds , no guarding, no rebound EXTREMITIES: 2+ posterior tibial pulses, warm, well-perfused, 1+ edema lower extremities b/l. NEUROLOGICAL: Cranial nerves II through XII grossly intact. Laboratory Results - last 24 hr 01/26/17 10:15 Urine Color Yellow Urine Appearance Clear Urine pH 6.0 Ur Specific [place] 1.015 Urine Protein Negative Urine Glucose (UA) Negative Urine Ketones Negative Urine Blood Negative Urine Nitrite Negative Urine Bilirubin Negative Urine Urobilinogen Negative Ur Leukocyte Esterase 1+ H D Urine RBC 1 Urine WBC 7 Ur Epithelial Cells Rare Urine Mucus Rare Active Medications Generic Name Dose Route Start Last Admin Trade Name Magui PRN Reason Stop Dose Admin Acetaminophen 650 mg 01/25/17 15:16 01/27/17 02:02 Tylenol - PO 650 mg Q4H PRN Administration FEVER OR PAIN Bisacodyl 5 mg 01/25/17 15:28 Dulcolax - PO DAILY PRN CONSTIPATION Chlorhexidine Gluconate 1 applic 01/25/17 22:00 01/26/17 22:29 Hibiclens For Decolonization - TP Not Given HS BALAJI Clindamycin Phosphate 50 mls @ 100 mls/hr 01/25/17 18:00 01/27/17 09:00 Cleocin 600 Mg Premix Ivpb - IVPB 100 mls/hr Q8H-IV BALAJI Administration Ertapenem 1 gm/ Sodium 50 mls @ 100 mls/hr 01/25/17 17:00 01/27/17 09:22 Chloride IVPB 100 mls/hr DAILY BALAJI Administration Protocol Mupirocin 1 applic 01/25/17 22:00 01/26/17 22:28 Bactroban Ointment (For Decolonization) - NS 01/28/17 21:59 Not Given BID BALAJI Polyethylene Glycol 17 gm 01/26/17 10:00 01/26/17 09:09 Miralax (For Daily Use) - PO Not Given DAILY BALAJI Multivit/Folic Acid/Iron 1 tab 01/26/17 10:00 01/27/17 09:01 Vitamins (Sjr) - PO 1 tab DAILY BALAJI Administration ASSESSMENT/PLAN: 36 y/o F with PMH gestational diabetes, iron deficiency anemia, who presented to ED with fever, chills, SOB, abdominal pain x 3 days. Pt admitted to ICU for sepsis secondary to endometritis and pyelonephritis. #Sepsis secondary to endometritis and pyelonephritis-resolving -Consulted ID: Dr. Bedoya -Consulted OB: Dr. Lindsay -Consulted Pulm: Dr. 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
[2017-01-27] MEDS: POLYETHYLENE GLYCOL 3350 119 GM BTL PO SCH (10:38)
[2017-01-27] MEDS: MUPIROCIN 2% TOPICAL OINTMENT FOR DECOLONIZATION NS SCH (10:38)
--- NOTE | 2017-01-27 10:42 | PN ---
Teaching Attending Note Name of Resident: Britt Sanchez ATTENDING PHYSICIAN STATEMENT I saw and evaluated the patient. I reviewed the resident's note and discussed the case with the resident. I agree with the resident's findings and plan as documented. SUBJECTIVE:improved. some burning with urination. abdomen less distended. denies Cp, SOB, fever, chills, N/V/C/D OBJECTIVE: Last Vital Signs Temp Pulse Resp BP Pulse Ox 98.7 F 67 18 129/76 95 01/27/17 01:00 01/27/17 01:00 01/27/17 08:39 01/27/17 01:00 01/27/17 08:39 General NAD Abdomen soft +distention ASSESSMENT AND PLAN: 36yo F with gestational DM presented to the ER with fever, chills and dysuria and abdominal pain 1. Acute endometritis and UTI and likely early pyelonephritis-afebrile >48H. repeat UA resolved. on ertapenem/clindaymcin day 5 total of abx therapy. will d/ w ID about switching to po abx today and sending home. ID and OB on board. 2. SOB-improved. CTA negative for PE. on abx. pulmonary consulted 3. Transaminitis-likely due to infection. now resolved. doppler negative for hepatic vein thrombosis 4. day 7- . breast pump to bedside. advised to pump and dump 5. Pseudohypocalcemia- Corrected Ca 8.6. on vitamins 6. Hypokalemia- resolved 7. acute blood loss anemia-continues to have vaginal bleeding but reports it as improved. Hgb stable. no indication for txn at this time 8. DVT ppx- Hep sq 9. d/c planning home today on oral therapy
--- NOTE | 2017-01-27 12:49 | PN ---
Progress Note, Physician History of Present Illness: doing well no complaints - Current Medication List Current Medications: Active Medications Acetaminophen (Tylenol -) 650 mg PO Q4H PRN PRN Reason: FEVER OR PAIN Last Admin: 01/27/17 02:02 Dose: 650 mg Bisacodyl (Dulcolax -) 5 mg PO DAILY PRN PRN Reason: CONSTIPATION Chlorhexidine Gluconate (Hibiclens For Decolonization -) 1 applic TP HS [facility] Last Admin: 01/26/17 22:29 Dose: Not Given Mupirocin (Bactroban Ointment (For Decolonization) -) 1 applic NS BID [facility] Stop: 01/28/17 21:59 Last Admin: 01/27/17 10:38 Dose: Not Given Polyethylene Glycol (Miralax (For Daily Use) -) 17 gm PO DAILY [facility] Last Admin: 01/27/17 10:38 Dose: Not Given Multivit/Folic Acid/Iron ( Vitamins (Sjr) -) 1 tab PO DAILY [facility] Last Admin: 01/27/17 09:01 Dose: 1 tab - Objective Vital Signs: Vital Signs Temperature 98.7 F 01/27/17 01:00 Pulse Rate 67 01/27/17 01:00 Respiratory Rate 18 01/27/17 08:39 Blood Pressure 129/76 01/27/17 01:00 O2 Sat by Pulse Oximetry (%) 95 01/27/17 08:39 Constitutional: Yes: No Distress, Calm Cardiovascular: Yes: Regular Rate and Rhythm Respiratory: Yes: Regular, CTA Bilaterally Gastrointestinal: Yes: Normal Bowel Sounds, Soft Musculoskeletal: Yes: WNL Extremities: Yes: WNL Neurological: Yes: Alert, Oriented Labs: CBC, BMP 01/26/17 06:00 01/26/17 06:00 INR, PTT INR 1.02 (0.82-1.09) 01/23/17 09:23 Assessment/Plan Problem List - Problems (1) Endometritis following delivery Code(s): O86.12 - ENDOMETRITIS FOLLOWING DELIVERY (2) Pyelonephritis complicating , antepartum Code(s): O23.00 - INFECTIONS OF KIDNEY IN , UNSPECIFIED TRIMESTER (3) UTI (urinary tract infection) Code(s): N39.0 - URINARY TRACT INFECTION, SITE NOT SPECIFIED Qualifiers: Urinary tract infection type: acute pyelonephritis Qualified Code(s): N10 - Acute pyelonephritis fever sepsis plan continue current mgmt will stop abx watch post abx for a day rest as per primary team final cx noted
--- NOTE | 2017-01-27 20:10 | PN ---
Progress Note (short form) - Note Progress Note: No acute events On diet No abdominal pain +BM AVSS Abd soft, NT, ND CBC, BMP 01/26/17 06:00 01/26/17 06:00 Diet as tolerated No surgical intervention at this time
[2017-01-28 07:05] VITALS: PULSE 54
[2017-01-28 07:29] LABS: MCH 31.3 pg (25.7-33.7); MCHC 33.8 g/dl (32.0-36.0); MEAN CELL VOLUME 92.7 fl (80-96); MEAN PLT VOLUME 8.4 fl (7.5-11.1); PLATELET COUNT 254 K/MM3 (134-434); RDW 13.9 % (11.6-15.6); WHITE BLOOD COUNT 7.9 K/mm3 (4.0-10.0)
[2017-01-28 07:59] LABS: ANION GAP 7 (8-16); CALCIUM 7.6 mg/dL (8.5-10.1); CO2 25 mmol/L (21-32); CREATININE 0.7 mg/dL (0.55-1.02); GLUCOSE,RANDOM 86 mg/dL (74-106)
[2017-01-28 10:12] VITALS: BP 147/88; TEMP 97.5
[2017-01-28] MEDS: PRENATAL VITAMINS W/ FOLIC ACID TABLET (FP) PO SCH (11:05)
[2017-01-28] MEDS: POLYETHYLENE GLYCOL 3350 119 GM BTL PO SCH (11:05)
--- NOTE | 2017-01-28 11:13 | PN ---
Progress Note, Physician - Current Medication List Current Medications: Active Medications Acetaminophen (Tylenol -) 650 mg PO Q4H PRN PRN Reason: FEVER OR PAIN Last Admin: 01/27/17 14:40 Dose: 650 mg Bisacodyl (Dulcolax -) 5 mg PO DAILY PRN PRN Reason: CONSTIPATION Polyethylene Glycol (Miralax (For Daily Use) -) 17 gm PO DAILY [facility] Last Admin: 01/28/17 11:05 Dose: Not Given Multivit/Folic Acid/Iron ( Vitamins (Sjr) -) 1 tab PO DAILY [facility] Last Admin: 01/28/17 11:05 Dose: 1 tab - Objective Vital Signs: Vital Signs Temperature 97.5 F L 01/28/17 10:00 Pulse Rate 54 L 01/28/17 10:00 Respiratory Rate 16 01/28/17 10:00 Blood Pressure 147/88 01/28/17 10:00 O2 Sat by Pulse Oximetry (%) 95 01/27/17 21:00 Labs: CBC, BMP 01/28/17 06:30 01/28/17 06:30 INR, PTT INR 1.02 (0.82-1.09) 01/23/17 09:23
--- NOTE | 2017-01-28 11:54 | PN ---
Progress Note, Physician History of Present Illness: doing well no complaints tolerating diet - Current Medication List Current Medications: Active Medications Acetaminophen (Tylenol -) 650 mg PO Q4H PRN PRN Reason: FEVER OR PAIN Last Admin: 01/27/17 14:40 Dose: 650 mg Bisacodyl (Dulcolax -) 5 mg PO DAILY PRN PRN Reason: CONSTIPATION Polyethylene Glycol (Miralax (For Daily Use) -) 17 gm PO DAILY [facility] Last Admin: 01/28/17 11:05 Dose: Not Given Multivit/Folic Acid/Iron ( Vitamins (Sjr) -) 1 tab PO DAILY [facility] Last Admin: 01/28/17 11:05 Dose: 1 tab - Objective Vital Signs: Vital Signs Temperature 97.5 F L 01/28/17 10:00 Pulse Rate 54 L 01/28/17 10:00 Respiratory Rate 16 01/28/17 10:00 Blood Pressure 147/88 01/28/17 10:00 O2 Sat by Pulse Oximetry (%) 95 01/27/17 21:00 Constitutional: Yes: No Distress, Calm Cardiovascular: Yes: Regular Rate and Rhythm Respiratory: Yes: Regular, CTA Bilaterally Gastrointestinal: Yes: Normal Bowel Sounds, Soft Musculoskeletal: Yes: WNL Extremities: Yes: WNL Neurological: Yes: Alert, Oriented Psychiatric: Yes: Alert, Oriented Labs: CBC, BMP 01/28/17 06:30 01/28/17 06:30 INR, PTT INR 1.02 (0.82-1.09) 01/23/17 09:23 Assessment/Plan Problem List - Problems (1) Endometritis following delivery Code(s): O86.12 - ENDOMETRITIS FOLLOWING DELIVERY (2) Pyelonephritis complicating , antepartum Code(s): O23.00 - INFECTIONS OF KIDNEY IN , UNSPECIFIED TRIMESTER (3) UTI (urinary tract infection) Code(s): N39.0 - URINARY TRACT INFECTION, SITE NOT SPECIFIED Qualifiers: Urinary tract infection type: acute pyelonephritis Qualified Code(s): N10 - Acute pyelonephritis fever sepsis plan continue current mgmt d/w gynacology we can send patient on omniceff for another 7 days continue rest as per the team
--- NOTE | 2017-01-28 12:42 | PN ---
Teaching Attending Note Name of Resident: Tristian Lemus ATTENDING PHYSICIAN STATEMENT I saw and evaluated the patient. I reviewed the resident's note and discussed the case with the resident. I agree with the resident's findings and plan as documented. SUBJECTIVE:resting comforatble. states dysuria and abominal pain has resolved. denies CP, SOB, fever, chills, hematuria. minimal vaginal bleeding OBJECTIVE: Last Vital Signs Temp Pulse Resp BP Pulse Ox 97.5 F L 54 L 16 147/88 97 01/28/17 10:01/28/17 10:00 01/28/17 10:01/28/17 10:01/28/17 09:00 General NAD Abdomen soft +distention ASSESSMENT AND PLAN: 36yo F with gestational DM presented to the ER with fever, chills and dysuria and abdominal pain 1. Acute endometritis and UTI and likely early pyelonephritis-afebrile 24H off abx. complete 5 days of ertapenem/clinda. will d/c home on omicef for additional week. 2. SOB-improved. CTA negative for PE. on abx. pulmonary consulted 3. Transaminitis-likely due to infection. now resolved. doppler negative for hepatic vein thrombosis 4. day 12- . pt can resume . medications are safe for 5. Pseudohypocalcemia- Corrected Ca 8.6. on vitamins 6. Hypokalemia- resolved 7. acute blood loss anemia-continues to have vaginal bleeding but reports it as improved. Hgb stable. no indication for txn at this time 8. DVT ppx- Hep sq 9. d/c home on abx for additional week. instructed to f/u with PMD in 1 week and to see OB in 1 month as instructed. verbalized understanding and agreement
--- NOTE | 2017-01-28 13:29 | DS ---
Physical Exam: SUBJECTIVE: Patient seen and examined at bed side . No acute events over last night. No new complaints, Abdominal pain has resolved. Patient feels well and ready to discharge home. Patient denied any Chest pain, headache, blurry vision, palpitation, D/C/N/V. OBJECTIVE: Vital Signs Period Temp Pulse Resp BP Sys/Reyes Pulse Ox Last 24 Hr 97.5 F-98 F 54-59 16-20 134-147/69-88 95-97 PHYSICAL EXAM GENERAL: The patient is awake, alert, and fully oriented, in no acute distress. HEAD: Normal with no signs of trauma. EYES: PERRL, anictirus NECK: Trachea midline, full range of motion, supple. LUNGS: Breath sounds equal, clear to auscultation bilaterally, no wheezes, no crackles, no accessory muscle use. HEART: Regular rate and rhythm, S1, S2 without murmur, rub or gallop. ABDOMEN: Soft, nontender, mildly distended, normoactive bowel sounds, no guarding, no rebound, no hepatosplenomegaly, no masses. EXTREMITIES: 2+ pulses, warm, well-perfused, no edema. NEUROLOGICAL: Normal speech, gait not observed. PSYCH: Normal mood, normal affect. SKIN: Warm, dry, normal turgor, no rashes or lesions noted. LABS Laboratory Results - last 24 hr 01/28/17 01/28/17 06:30 06:30 WBC 7.9 RBC 3.50 L Hgb 11.0 Hct 32.5 MCV 92.7 MCH 31.3 MCHC 33.8 RDW 13.9 Plt Count 254 D MPV 8.4 Sodium 142 Potassium 4.7 Chloride 110 H Carbon Dioxide 25 Anion Gap 7 L BUN 11 D Creatinine 0.7 Random Glucose 86 Calcium 7.6 L HOSPITAL COURSE: Date of Admission:01/23/17 Date of Discharge: 01/28/17 36yo F with gestational DM presented to the ER with fever, chills and dysuria and abdominal pain was found to have acute endometritis and UTI and likely early pyelonephritis was treated with 5 days of ertapenem/clinda. psatient was afebrile 24 hours ater the aBX and was d/c home on omicef for additional week. pt can resume . medications are safe for .instructed to f/u with PMD in 1 week and to see OB in 1 month as instructed. verbalized understanding and agreement. Tristian Lemus Md. PGY1 Minutes to complete discharge: 20 Discharge Summary Reason For Visit: UTI, ENDOMETRITIS FOLLOWING DELIVERY Current Active Problems Endometritis following delivery (Acute) Pneumonia affecting , antepartum (Acute) Pyelonephritis complicating , antepartum (Acute) UTI (urinary tract infection) (Acute) Condition: Stable - Instructions Diet, Activity, Other Instructions: You were recently in the hospital for an infection of the lining of your uterus , called endometritis, as well as a urinary tract infection (UTI). You may resume activity as tolerated. It is now safe to resume Please take the following antibiotic when you go home: Cefdinir 300 MG twice a day orally for 7 days You may resume your other home medications. We recommend that you follow-up with your primary care doctor within one week. Follow up with your obgyn, Dr. Lindsay, in 1 month like instructed If you develop shortness of breath, severe abdominal pain, chest pain, or any new symptoms, please go to the hospital. We hope you feel better soon! Referrals: Uma Lindsay MD [Staff Physician] - Disposition: HOME - Home Medications Comprehensive Discharge Medication List: Ambulatory Orders Cefdinir [Omnicef -] 300 mg PO BID #14 capsule 01/28/17 This patient is new to me today: Yes Date on this admission: 01/29/17 Emergency Visit: Yes ED Registration Date: 01/23/17 Care time: The patient presented to the Emergency Department on the above date and was hospitalized for further evaluation of their emergent condition. Critical Care patient: No - Discharge Referral Referred to [facility] Med P.C[facility] No
== END 2017-01-28 13:50 | disposition home or self-care (01) | DRG 776 ==
LOC: JER 07:53 → JERBED 13:59 → JICU 17:22 → J7W 01-25 18:47
PROVIDERS: ADMIT Internal Medicine; ATTEND Internal Medicine
DX: O85 Puerperal sepsis (principal); O86.21 Infection of kidney following delivery; D62 Acute posthemorrhagic anemia; J90 Pleural effusion, not elsewhere classified; J98.11 Atelectasis; O86.12 Endometritis following delivery; R74.0 Nonspecific elevation of levels of transaminase and lactic acid dehydrogenase [LDH]; E87.6 Hypokalemia; E83.51 Hypocalcemia; O90.81 Anemia of the puerperium; R06.02 Shortness of breath; R16.2 Hepatomegaly with splenomegaly, not elsewhere classified
CPT/HCPCS: 36415; 71010-TC; 71275-TC; 74176-TC; 76705-TC; 76830-TC; 80048; 80053; 81003; 81015; 83605; 83690; 83735; 84100; 84484; 85025; 85027; 85610; 85730; 86140; 86850; 86900; 86901; 87040; 87086; 87899; 93005; 93010; 93970-TC; 93976; 94010; 99284-25